=== PATIENT | female | born 1945 | race Caucasian/White ===

== ENCOUNTER 2022-06-07 12:13 | Emergency (ER) | payer MEDICARE, MEDICAID, SELFPAY ==
[2022-06-07 12:25] VITALS: BP 151/70; PULSE 51; RESP 18; TEMP 36.8; O2SAT 98
--- NOTE | 2022-06-07 12:58 | ED.GENADULT ---
HPI - General Adult General Chief complaint: Urogenital-Female Stated complaint: Poss uti / kidney pain Source: patient and RN notes reviewed History of Present Illness HPI narrative: 76-year-old female presents to urgent care with complaints left lower back pain that radiates up and down her back. Patient states the symptoms are intermittent but has been going on for the last 9 days. Patient states she has always had back pain in this area for the last 40 years. Patient denies any new abdominal pain, flank pain, fevers, chills, chest pain, or new shortness of breath. Patient is also reporting some burning with urination intermittently the last few days as well. Some parts of this dictation were generated by voice recognition software and may contain typographical and/or grammatical inaccuracies. Related Data Home Medications Medication Instructions Recorded Confirmed alendronate 70 mg tablet 70 mg PO WEEKLY 06/07/22 06/07/22 apixaban 5 mg tablet (Eliquis) 5 mg PO BID 06/07/22 06/07/22 brimonidine 0.2 % eye drops 1 drp EACH EYE BID 06/07/22 06/07/22 dorzolamide 2 % eye drops 2 drp EACH EYE BID 06/07/22 06/07/22 escitalopram oxalate 5 mg tablet 5 mg PO DAILY 06/07/22 06/07/22 famotidine 20 mg tablet 20 mg PO BID 06/07/22 06/07/22 latanoprost 0.005 % eye drops 1 drp EACH EYE HS 06/07/22 06/07/22 metoprolol tartrate 50 mg tablet 25 mg PO BID 06/07/22 06/07/22 omeprazole 40 mg capsule,delayed 40 mg PO DAILY 06/07/22 06/07/22 release prednisone 20 mg tablet mg 06/07/22 pyridostigmine bromide 180 mg 180 mg PO HS 06/07/22 06/07/22 tablet,extended release pyridostigmine bromide 60 mg tablet 90 mg PO TID 06/07/22 06/07/22 Allergies Allergy/AdvReac Type Severity Reaction Status Date / Time Penicillins Allergy Mild THROAT Verified 07/06/18 10:30 FEELS ODD AND HAS INCREASE IN [place]A codeine Allergy Unknown Unknown Unverified 06/07/22 12:28 heparin Allergy Unknown Unknown Unverified 06/07/22 12:28 Review of Systems Review of Systems: Pertinent positives and pertinent negatives per HPI. PMFSH Comments At the time of my signature, I reviewed and agree with the nursing past medical, surgical, social, and family history. There is no relevant family history pertinent to the patient complaint. Exam Narrative: GENERAL: This is a well-nourished, well-developed patient, in no apparent distress. HEAD: normocephalic, atraumatic. EYES: Sclera clear/white. Vision is grossly intact. EARS: External ears normal, auditory canals clear and without drainage. Hearing grossly intact. NOSE: External nose normal with no obvious nasal discharge, nares without redness, no rhinorrhea. THROAT: Mucous membranes moist, posterior pharynx clear. NECK: Neck supple, non-tender without lymphadenopathy, masses or thyromegaly. CARDIOVASCULAR: Bradycardic RESPIRATORY: Clear to auscultation. Breath sounds equal bilaterally. No wheezes, rales, or rhonchi. GASTROINTESTINAL: Abdomen soft, non-tender, nondistended. Bowel sounds are active. No hepato-splenomegaly, or palpable masses. No guarding. SKIN: warm, intact with no suspicious lesions or rash, good texture and turgor. NEURO: awake, alert, and oriented to person, place and time. There were no obvious focal neurologic abnormalities. BACK: Nontender without deformity or crepitance. No flank tenderness. Course Course Level of Care: Express Care Visit Vital Signs Vital signs: Vital Signs Temperature 98.2 F 06/07/22 12:25 Pulse Rate 51 L 06/07/22 12:25 Respiratory Rate 18 06/07/22 12:25 Blood Pressure 151/70 H 06/07/22 12:25 Pulse Oximetry 98 06/07/22 12:25 Oxygen Delivery Room Air 06/07/22 12:25 Temperature 98.2 F 06/07/22 12:25 Pulse Rate 51 L 06/07/22 12:25 Respiratory Rate 18 06/07/22 12:25 Blood Pressure 151/70 H 06/07/22 12:25 Pulse Oximetry 98 06/07/22 12:25 Oxygen Delivery Room Air 06/07/22 12:25 Reviewed Medical Decision Making [facility] Sridhar
== END 2022-06-07 13:07 | disposition home or self-care (01) ==
PROVIDERS: Emergency Provider Nurse Practitioner Family; PCP Internal Medicine
DX: S39.012A Strain of muscle, fascia and tendon of lower back, initial encounter (principal); X58.XXXA Exposure to other specified factors, initial encounter; R30.0 Dysuria
CPT/HCPCS: 81003; 87086; 87088; 99213; G0463

== ENCOUNTER → 2024-02-08 12:44 | Outpatient (CLI) | payer MEDICARE, MEDICAID, SELFPAY ==
--- NOTE | ~2024-02-08 | XR_ITS ---
3 VIEWS LUMBAR SPINE Ordering provider: Albert Beauchamp, History: . DORSALGIA, PAIN BY KIDNEYS . Comparison: None. FINDINGS: VERTEBRAL BODIES: No visible fracture or subluxation. Degenerative changes of the spine. Attempt of l umbarization of S1. DISK SPACES: Severe Narrowing of the disc L2-L3, L4-L5 and L5-S1. Multilevel facet joint disease. SOFT TISSUES: Cholelithiasis. Right sacroiliitis. IMPRESSION: No acute osseous abnormality lumbar spine. Multilevel degenerative disc disease. Cholelithiasis. Right sacral ileitis. Reviewed, dictated and finalized at location [employer]
== END ==
LOC: EXPBRAD 12:47
PROVIDERS: PCP Internal Medicine; Visit Provider Internal Medicine
DX: M54.9 Dorsalgia, unspecified (principal); M51.369 Other intervertebral disc degeneration, lumbar region without mention of lumbar back pain or lower extremity pain; K80.20 Calculus of gallbladder without cholecystitis without obstruction
CPT/HCPCS: 72100

== ENCOUNTER 2024-04-18 18:25 | Emergency (ER) | payer MEDICARE, MEDICAID, SELFPAY ==
--- NOTE | ~2024-04-18 | XR_ITS ---
CHEST RADIOGRAPH, PA AND LATERAL CLINICAL HISTORY: cough,COVID POSITIVE, RT LOWER CRACKLES . COMPARISON: None TECHNIQUE: PA and lateral views of the chest. FINDINGS The cardiomediastinal silhouette is unremarkable. The lungs are clear. Visualized osseous structures and soft tissues are unremarkable. IMPRESSION: No focal infiltrate or effusion. Reviewed, dictated and finalized at location [facility] [employer]
--- OUTSIDE RECORDS SUMMARY | 2024-04-18 18:28 | XMS_ITS | Encounter Summary ---
Author Organization [facility] Address [address] [place] [address] Phone Care Team Providers Care Radiochemical Technician Name Role Phone Albert Beauchamp MD Primary Care Provider Jamie Ochoa DO Unavailable [phone] Rosa Arreguin PAC Unavailable Sandhya Gonzalez APRN, QA SOFTWARE TEST ENGINEER Unavailable Justyn Barrera MD Unavailable [phone] Clari Rubio MD Unavailable Reason for Visit * Reason Comments Medication Refill Encounter Details Date Type Department Care Team (Late st Contact Info) Description 06/13/2021 Refill [facility] - Gastroenterology - [place] [address] [place] [id number] Rosa Arreguin, PAC [address] [place] [address] Medication Refill Social History Tobacco Use Types Packs/Day Years Used Date Smoking Tobacco: Never Smokeless Tobacco: Never Alcohol Use Standard Drinks/Week Comments Yes 0 (1 standard drink = 0.6 oz pur e alcohol) occassioal Comments No Sex and Gender Information Value Date Recorded Sex Assigned at Not on file Legal Sex Female 11:28 PM CDT Gender Identity Not on file Sexual Orientation Not on file Occupation Industry Job Start Date Job End Date retired Not on file Not on file Not on file documented as of this encounter Miscellaneous Notes * Telephone Encounter - Kendy Servin RN - 06/13/2021 10:03 AM CDT Medication refilled and signed per [facility] chronic medication standing order for pediatric and adult patients. documented in this encounter Plan of Treatment Upcoming Encounters Date Type Department Care Team (Late st Contact Info) Description 06/30/2024 10:00 AM CDT Office Visit [facility] - Endocrinology - [place] [address] [place] [address] Clari Rubio MD [address] [phone] 07/25/2024 10:00 AM CDT Office Visit [facility] Medical [facility] - Gastroenterology - [place] [address] [place] [address] Sandhya Gonzalez APRN, QA SOFTWARE TEST ENGINEER [address] [place] [address] documented as of this encounter Visit Diagnoses Not on filedocumented in this encounter Additional Health Concerns Infection Onset Date Last Indicated Resolved Time COVID - 19 Confirmed 01/16/2022 01/16/2022 022 12:16 AM [employer] SUPER[employer] documented as of this encounter Care Teams Radiochemical Technician Relationship Specialty Start Date End Date Albert Beauchamp MD [address] [place], [place] [phone] PCP - General Internal Medicine 06/07/15 Jamie Ochoa DO [address] [place] [address] Gastroenterology 07/20/15 Rosa Arreguin PAC [address] [place] [address] Physician Director Of Integrated Marketing Physician Director Of Integrated Marketing 07/11/21 Sandhya Gonzalez APRN, QA SOFTWARE TEST ENGINEER [address] [place] [address] Nurse Practitioner Advanced Practice Nurse 01/30/23 Justyn Barrera MD [address] [place] [address] Consulting Physician Gastroenterology 05/25/22 Clari Rubio MD [address] [phone] Consulting Physician Endocrinology 05/21/23 documented as of this encounter
--- OUTSIDE RECORDS SUMMARY | 2024-04-18 18:28 | XMS_ITS | Data Portability ---
Author Organization [facility] NANCY Yana [facility] Address [address] [place] [address] Care Team Providers Care Community Service Organization Director Name Role Phone ALBERT BANEGAS Primary Care Provider [phone] Assessment No assessment recorded. Plan of Treatment Reminders Order Date Submit Date Provider Last Modified By Organization Details Last Modified Time Details Appointments ANY 15 2024 10:30A M RICHAR ALEXANDER- Not available Not available Not available Lab urinalysi s, dipstick 2023 024 nsuthan In-Office Order, Internal Use Only DO Not Attach Compendium DO Not Attach Compendium, Do Not Delete/merge, [id number] 02/08/2024 11:12:43 HbA1c (hemoglob in A1c), blood 2023 024 [facility], [address] [facility], [facility] [address], [place], [address], 02/21/2024 10:36:55 lipid panel, serum 2023 024 [facility], [address] [facility], [facility], [place], [address], 02/21/2024 10:36:52 CBC w/ auto diff 2023 024 [facility], [address] [facility], [facility], [place], [address], 02/21/2024 10:36:56 CMP, serum or plasma 2023 024 [facility], [address] [facility], [address], [place], [address], 02/21/2024 10:36:53 vitamin D, 25-hydrox y, total, serum 2023 024 [facility], [address], [address], [place], [address], 09/25/2023 08:22:27 HbA1c (hemoglob in A1c), blood 2023 024 [facility], [address] [facility], [address], [place], [address], 09/25/2023 08:22:26 CBC w/ auto diff 2023 024 [facility], [address] [facility], [address], [place], [address], 09/25/2023 08:22:27 CMP, serum or plasma 2023 024 [facility], [address] [facility], [address], [place], [address], 09/25/2023 08:22:25 lipid panel, serum 2023 024 [facility], [address] [facility], [address], [place], [address], 09/25/2023 08:22:24 Referral None recorded. Procedures None recorded. Surgeries None recorded. Imaging XR, lumbar spine 2023 024 [facility], [address] [place], [address], 02/08/2024 18:33:59 Medication Orders tramadol 50 mg tablet 2023 024 [facility], [address], [place], [address], 01/01/2024 11:35:21 Patient TargetsNo targets recorded. Patient Instructions Encounter Date Encounter Id Patient Instructions Last Modified By Organization Details Last Modified Time 07/03/2023 [id number] pt in 3 month with labs nsuthan Not available 07/03/2023 11:14:37 10/02/2023 [id number] f/u in 3 month nsuthan Not available 10/02/2023 11:48:02 01/01/2024 [id number] bursitis: care instructions nsuthan Not available 01/01/2024 11:35:18 f/u in 4 month nsuthan Not available 1 11:28:02 02/08/2024 [id number] keep f/u nsuthan Not available 02/07 14:13:50 Reason for Referral None Reported. Results Created Date Observation Date Name Description Value Unit Range Abnormal Flag Note LastModifiedBy Organization Detail LastModifiedTime 09/24/19 24 09/25/2023 LIPID PANEL cholesterol, total 171 mg/dL 100-19 9 Not Available [facility] ([facility]) [address] [place], [address], 09/25/2023 08:22:24 09/24/19 24 09/25/2023 LIPID PANEL triglyceride s 156 mg/dL 0-149 above high normal Not Available [facility] ([facility]) [address] [place], [address], 09/25/2023 08:22:24 09/24/19 24 09/25/2023 LIPID PANEL HDL cholesterol 69 mg/dL >39 Not Available [facility] ([facility]) [address] [place], [address], 09/25/2023 08:22:24 09/24/19 24 09/25/2023 LIPID PANEL VLDL cholesterol yarely 26 mg/dL 5-40 Not Available [facility] ([facility]) [address] [place], [address], 09/25/2023 08:22:24 09/24/19 24 09/25/2023 LIPID PANEL LDL chol calc ([facility]) 76 mg/dL 0-99 Not Available [facility] ([facility]) [address] [facility] [place], [address], 09/25/2023 08:22:24 09/24/19 24 09/25/2023 COMP. METAB OLIC PANEL (14) glucose 114 mg/dL 70-99 above high normal Not Available [facility] ([facility]) [address] [facility] [place], [address], 09/25/2023 08:22:25 09/24/19 24 09/25/2023 COMP. METAB OLIC PANEL (14) BUN 15 mg/dL 8-27 Not Available [facility] ([facility]) [address] [facility] [place], [address], 09/25/2023 08:22:25 09/24/19 24 09/25/2023 COMP. METAB OLIC PANEL (14) creatinine 0.89 mg/dL 0.57-1 .00 Not Available [facility] ([facility]) [address] [facility] [place], [address], 09/25/2023 08:22:25 09/24/19 24 09/25/2023 COMP. METAB OLIC PANEL (14) eGFR 67 mL/mi n/1.7 3 >59 Not Available [facility] ([facility]) [address] [facility] [place], [address], 09/25/2023 08:22:25 09/24/19 24 09/25/2023 COMP. METAB OLIC PANEL (14) BUN/creatini ne ratio 17 12-28 Not Available [facility] ([facility]) [address] [facility] [place], [address], 09/25/2023 08:22:25 09/24/19 24 09/25/2023 COMP. METAB OLIC PANEL (14) sodium 138 mmol/ L 134-14 4 Not Available [facility] ([facility]) [address] [facility] [place], [address], 09/25/2023 08:22:25 09/24/19 24 09/25/2023 COMP. METAB OLIC PANEL (14) potassium 4.7 mmol/ L 3.5-5. 2 Not Available [facility] ([facility]) [address] [facility] [place], [address], 09/25/2023 08:22:25 09/24/19 24 09/25/2023 COMP. METAB OLIC PANEL (14) chloride 103 mmol/ L 96-106 Not Available [facility] ([facility]) [address] [facility] [place], [address], 09/25/2023 08:22:25 09/24/19 24 09/25/2023 COMP. METAB OLIC PANEL (14) carbon dioxide, total 20 mmol/ L 20-29 Not Available [facility] ([facility]) [address] [facility] [place], [address], 09/25/2023 08:22:25 09/24/19 24 09/25/2023 COMP. METAB OLIC PANEL (14) calcium 9.1 mg/dL 8.7-10 .3 Not Available [facility] ([facility]) [address] [facility] [place], [address], 09/25/2023 08:22:25 09/24/19 24 09/25/2023 COMP. METAB OLIC PANEL (14) protein, total 6.4 g/dL 6.0-8. 5 Not Available [facility] ([facility]) [address] [facility] [place], [address], 09/25/2023 08:22:25 09/24/19 24 09/25/2023 COMP. METAB OLIC PANEL (14) albumin 4.3 g/dL 3.8-4. 8 Not Available [facility] ([facility]) [address] [facility] [place], [address], 09/25/2023 08:22:25 09/24/19 24 09/25/2023 COMP. METAB OLIC PANEL (14) globulin, total 2.1 g/dL 1.5-4. 5 Not Available [facility] ([facility]) [address] [place], [address], 09/25/2023 08:22:25 09/24/19 24 09/25/2023 COMP. METAB OLIC PANEL (14) bilirubin, total 0.2 mg/dL 0.0-1. 2 Not Available [facility] ([facility]) [address] [place], [address], 09/25/2023 08:22:25 09/24/19 24 09/25/2023 COMP. METAB OLIC PANEL (14) alkaline phosphatase 57 IU/L 44-121 Not Available [facility] ([facility]) [address] [place], [address], 09/25/2023 08:22:25 09/24/19 24 09/25/2023 COMP. METAB OLIC PANEL (14) AST (SGOT) 19 IU/L 0-40 Not Available [facility] ([facility]) [address] [place], [address], 09/25/2023 08:22:25 09/24/19 24 09/25/2023 COMP. METAB OLIC PANEL (14) ALT (SGPT) 14 IU/L 0-32 Not Available [facility] ([facility]) [address] [place], [address], 09/25/2023 08:22:25 09/24/19 24 09/25/2023 HEMOG LOBIN A1C hemoglobin A1C 6.2 % 4.8-5. 6 above high normal Predi abete s: 5.7 - 6.4 Diabe johny: >6.4 Glyce jaylen contr ol for adult s with diabe johny: <7.0 Not Available [facility] ([facility]) [address] [place], [address], 09/25/2023 08:22:26 09/24/19 24 09/25/2023 CBC WITH DIFFE RENTI AL/PL ATELE T WBC 5.5 x10e3 /uL 3.4-10 .8 Not Available [facility] ([facility]) [address] [facility], [place], [address], 09/25/2023 08:22:26 09/24/19 24 09/25/2023 CBC WITH DIFFE RENTI AL/PL ATELE T RBC 4.90 x10e6 /uL 3.77-5 .28 Not Available [facility] ([facility]) [address] [place], [address], 09/25/2023 08:22:26 09/24/19 24 09/25/2023 CBC WITH DIFFE RENTI AL/PL ATELE T hemoglobin 11.9 g/dL 11.1-1 5.9 Not Available [facility] ([facility]) [address] [place], [address], 09/25/2023 08:22:26 09/24/19 24 09/25/2023 CBC WITH DIFFE RENTI AL/PL ATELE T hematocrit 38.4 % 34.0-4 6.6 Not Available [facility] ([facility]) [address] [place], [address], 09/25/2023 08:22:26 09/24/19 24 09/25/2023 CBC WITH DIFFE RENTI AL/PL ATELE T MCV 78 fL 79-97 below low normal Not Available [facility] ([facility]) [address] [place], [address], 09/25/2023 08:22:26 09/24/19 24 09/25/2023 CBC WITH DIFFE RENTI AL/PL ATELE T MCH 24.3 pg 26.6-3 3.0 below low normal Not Available [facility] ([facility]) [address] [place], [address], 09/25/2023 08:22:26 09/24/19 24 09/25/2023 CBC WITH DIFFE RENTI AL/PL ATELE T MCHC 31.0 g/dL 31.5-3 5.7 below low normal Not Available [facility] ([facility]) [address] [facility], [place], [address], 09/25/2023 08:22:26 09/24/19 24 09/25/2023 CBC WITH DIFFE RENTI AL/PL ATELE T RDW 17.3 % 11.7-1 5.4 above high normal Not Available [facility] ([facility]) [address] [facility], [place], [address], 09/25/2023 08:22:26 09/24/19 24 09/25/2023 CBC WITH DIFFE RENTI AL/PL ATELE T platelets 302 x10e3 /uL 150-45 0 Not Available [facility] ([facility]) [address] [facility], [place], [address], 09/25/2023 08:22:26 09/24/19 24 09/25/2023 CBC WITH DIFFE RENTI AL/PL ATELE T neutrophils 71 % notest ab. Not Available [facility] ([facility]) [address] [facility], [place], [address], 09/25/2023 08:22:26 09/24/19 24 09/25/2023 CBC WITH DIFFE RENTI AL/PL ATELE T lymphs 14 % notest ab. Not Available [facility] ([facility]) [address] [place], [address], 09/25/2023 08:22:26 09/24/19 24 09/25/2023 CBC WITH DIFFE RENTI AL/PL ATELE T monocytes 12 % notest ab. Not Available [facility] ([facility]) [address] [place], [address], 09/25/2023 08:22:26 09/24/19 24 09/25/2023 CBC WITH DIFFE RENTI AL/PL ATELE T eos 2 % notest ab. Not Available [facility] ([facility]) [address] [place], [address], 09/25/2023 08:22:26 09/24/19 24 09/25/2023 CBC WITH DIFFE RENTI AL/PL ATELE T basos 1 % notest ab. Not Available [facility] ([facility]) [address] [place], [address], 09/25/2023 08:22:26 09/24/19 24 09/25/2023 CBC WITH DIFFE RENTI AL/PL ATELE T neutrophils (absolute) 3.9 x10e3 /uL 1.4-7. 0 Not Available [facility] ([facility]) [address] [place], [address], 09/25/2023 08:22:26 09/24/19 24 09/25/2023 CBC WITH DIFFE RENTI AL/PL ATELE T lymphs (absolute) 0.7 x10e3 /uL 0.7-3. 1 Not Available [facility] ([facility]) [address] [place], [address], 09/25/2023 08:22:26 09/24/19 24 09/25/2023 CBC WITH DIFFE RENTI AL/PL ATELE T monocytes(ab solute) 0.7 x10e3 /uL 0.1-0. 9 Not Available [facility] ([facility]) [address] [place], [address], 09/25/2023 08:22:26 09/24/19 24 09/25/2023 CBC WITH DIFFE RENTI AL/PL ATELE T eos (absolute) 0.1 x10e3 /uL 0.0-0. 4 Not Available [facility] ([facility]) [address] [place], [address], 09/25/2023 08:22:26 09/24/19 24 09/25/2023 CBC WITH DIFFE RENTI AL/PL ATELE T baso (absolute) 0.0 x10e3 /uL 0.0-0. 2 Not Available [facility] ([facility]) [address] [facility], [place], [address], 09/25/2023 08:22:26 09/24/19 24 09/25/2023 CBC WITH DIFFE RENTI AL/PL ATELE T immature granulocytes 0 % notest ab. Not Available [facility] ([facility]) [address] [facility], [place], [address], 09/25/2023 08:22:26 09/24/19 24 09/25/2023 CBC WITH DIFFE RENTI AL/PL ATELE T immature grans (abs) 0.0 x10e3 /uL 0.0-0. 1 Not Available [facility] ([facility]) [address] [facility], [place], [address], 09/25/2023 08:22:26 09/24/19 24 09/25/2023 VITAM IN D, 25-HY DROXY vitamin D, 25-hydroxy 45.3 NG/mL 30.0-1 00.0 Vitam in D defic iency has been defin ed by the Insti tute of Medic ine and an Endoc rine Socie ty pract ice guide line as a level of serum 25-OH vitam in D less than 20 ng/mL (1,2) . The Endoc rine Socie ty went on to furth er defin e vitam in D insuf ficie ncy as a level betwe en 21 and 29 ng/mL (2). 1. IOM (Inst itute of Medic ine). 2009. Dieta ry refer ence intak es for calci um and D. Cain wood [place]: The Natio [facility] Press . 2. Supriya paiz MF, Binkl ey [place], Ham off-F errar i CLEARY, et al. Evalu ation , treat ment, and preve ntion of vitam in D defic iency : an Endoc rine Socie ty clini yarely pract ice guide line. JCEM. 2010; 96(7) :1911 -30. Not Available [facility] ([facility]) [address] [facility], [place], [address], 09/25/2023 08:22:27 02/08/20 24 02/08/2024 urina lysis , dipst ick Leukocytes Negati ve Not Available In-Office Order Internal Use Only DO Not Attach Compendium DO Not Attach Compendium, Do Not Delete/merge, [id number] 02/08/2024 10:49:31 02/08/20 24 02/08/2024 urina lysis , dipst ick Nitrite negati ve Not Available In-Office Order Internal Use Only DO Not Attach Compendium DO Not Attach Compendium, Do Not Delete/merge, [id number] 02/08/2024 10:49:31 02/08/20 24 02/08/2024 urina lysis , dipst ick Urobilinogen .2 Not Available In-Of fice Order Internal Use Only DO Not Attach Compendium DO Not Attach Compendium, Do Not Delete/merge, [id number] 02/08/2024 10:49:31 02/08/20 24 02/08/2024 urina lysis , dipst ick Protein Negati ve Not Available In-Office Order Internal Use Only DO Not Attach Compendium DO Not Attach Compendium, Do Not Delete/merge, [id number] 02/08/2024 10:49:31 02/08/20 24 02/08/2024 urina lysis , dipst ick pH 5.5 Not Available In-Office Order Internal Use Only DO Not Attach Compendium DO Not Attach Compendium, Do Not Delete/merge, [id number] 02/08/2024 10:49:31 02/08/20 24 02/08/2024 urina lysis , dipst ick Blood Negati ve Not Available In-Office Order Internal Use Only DO Not Attach Compendium DO Not Attach Compendium, Do Not Delete/merge, [id number] 02/08/2024 10:49:31 02/08/20 24 02/08/2024 urina lysis , dipst ick Specific [place] 1.015 Not Available In-Off ice Order Internal Use Only DO Not Attach Compendium DO Not Attach Compendium, Do Not Delete/merge, [id number] 02/08/2024 10:49:31 02/08/20 24 02/08/2024 urina lysis , dipst ick Ketone Negati ve Not Available In-Office Order Internal Use Only DO Not Attach Compendium DO Not Attach Compendium, Do Not Delete/merge, [id number] 02/08/2024 10:49:31 02/08/20 24 02/08/2024 urina lysis , dipst ick Bilirubin Negati ve Not Available In-Office Order Internal Use Only DO Not Attach Compendium DO Not Attach Compendium, Do Not Delete/merge, [id number] 02/08/2024 10:49:31 02/08/20 24 02/08/2024 urina lysis , dipst ick Glucose Negati ve Not Available In-Office Order Internal Use Only DO Not Attach Compendium DO Not Attach Compendium, Do Not Delete/merge, [id number] 02/08/2024 10:49:31 02/08/20 24 02/08/2024 urina lysis , dipst ick Appearance Clear Not Available In-Offi ce Order Internal Use Only DO Not Attach Compendium DO Not Attach Compendium, Do Not Delete/merge, [id number] 02/08/2024 10:49:31 02/08/20 24 02/08/2024 urina lysis , dipst ick Color Pale Yellow Not Available In-Office Order Internal Use Only DO Not Attach Compendium DO Not Attach Compendium, Do Not Delete/merge, [id number] 02/08/2024 10:49:31 02/20/20 24 02/21/2024 LIPID PANEL cholesterol, total 180 mg/dL 100-19 9 Not Available [facility] ([facility]) [address] [place], [address], 02/21/2024 10:36:52 02/20/20 24 02/21/2024 LIPID PANEL triglyceride s 247 mg/dL 0-149 above high normal Not Available [facility] ([facility]) [address] [place], [address], 02/21/2024 10:36:52 02/20/20 24 02/21/2024 LIPID PANEL HDL cholesterol 71 mg/dL >39 Not Available [facility] ([facility]) [address] [facility], [place], [address], 02/21/2024 10:36:52 02/20/20 24 02/21/2024 LIPID PANEL VLDL cholesterol yarely 39 mg/dL 5-40 Not Available [facility] ([facility]) [address] [facility], [place], [address], 02/21/2024 10:36:52 02/20/20 24 02/21/2024 LIPID PANEL LDL chol calc ([facility]) 70 mg/dL 0-99 Not Available [facility] ([facility]) [address] [place], [address], 02/21/2024 10:36:52 02/20/20 24 02/21/2024 COMP. METAB OLIC PANEL (14) glucose 107 mg/dL 70-99 above high normal Not Available [facility] ([facility]) [address] [place], [address], 02/21/2024 10:36:53 02/20/20 24 02/21/2024 COMP. METAB OLIC PANEL (14) BUN 17 mg/dL 8-27 Not Available [facility] ([facility]) [address] [place], [address], 02/21/2024 10:36:53 02/20/20 24 02/21/2024 COMP. METAB OLIC PANEL (14) creatinine 0.89 mg/dL 0.57-1 .00 Not Available [facility] ([facility]) [address] [place], [address], 02/21/2024 10:36:53 02/20/20 24 02/21/2024 COMP. METAB OLIC PANEL (14) eGFR 67 mL/mi n/1.7 3 >59 Not Available [facility] ([facility]) [address] [facility] [place], [address], 02/21/2024 10:36:53 02/20/20 24 02/21/2024 COMP. METAB OLIC PANEL (14) BUN/creatini ne ratio 20 02- Not Available [facility] ([facility]) [address] [facility] [place], [address], 02/21/2024 10:36:53 02/20/20 24 02/21/2024 COMP. METAB OLIC PANEL (14) sodium 140 mmol/ L 134-14 4 Not Available [facility] ([facility]) [address] [facility] [place], [address], 02/21/2024 10:36:53 02/20/20 24 02/21/2024 COMP. METAB OLIC PANEL (14) potassium 4.0 mmol/ L 3.5-5. 2 Not Available [facility] ([facility]) [address] [facility] [place], [address], 02/21/2024 10:36:53 02/20/20 24 02/21/2024 COMP. METAB OLIC PANEL (14) chloride 103 mmol/ L 96-106 Not Available [facility] ([facility]) [address] [facility] [place], [address], 02/21/2024 10:36:53 02/20/20 24 02/21/2024 COMP. METAB OLIC PANEL (14) carbon dioxide, total 24 mmol/ L 20-29 Not Available [facility] ([facility]) [address] [facility] [place], [address], 02/21/2024 10:36:53 02/20/20 24 02/21/2024 COMP. METAB OLIC PANEL (14) calcium 8.9 mg/dL 8.7-10 .3 Not Available [facility] ([facility]) [address] [place], [address], 02/21/2024 10:36:53 02/20/20 24 02/21/2024 COMP. METAB OLIC PANEL (14) protein, total 6.5 g/dL 6.0-8. 5 Not Available [facility] ([facility]) [address] [facility] [place], [address], 02/21/2024 10:36:53 02/20/20 24 02/21/2024 COMP. METAB OLIC PANEL (14) albumin 4.4 g/dL 3.8-4. 8 Not Available [facility] ([facility]) [address] [facility] [place], [address], 02/21/2024 10:36:53 02/20/20 24 02/21/2024 COMP. METAB OLIC PANEL (14) globulin, total 2.1 g/dL 1.5-4. 5 Not Available [facility] ([facility]) [address] [facility], [place], [address], 02/21/2024 10:36:53 02/20/20 24 02/21/2024 COMP. METAB OLIC PANEL (14) bilirubin, total 0.2 mg/dL 0.0-1. 2 Not Available [facility] ([facility]) [address] [facility] [place], [address], 02/21/2024 10:36:53 02/20/20 24 02/21/2024 COMP. METAB OLIC PANEL (14) alkaline phosphatase 63 IU/L 44-121 Not Available [facility] ([facility]) [address] [facility] [place], [address], 02/21/2024 10:36:53 02/20/20 24 02/21/2024 COMP. METAB OLIC PANEL (14) AST (SGOT) 17 IU/L 0-40 Not Available [facility] ([facility]) [address] [facility] [place], [address], 02/21/2024 10:36:53 02/20/20 24 02/21/2024 COMP. METAB OLIC PANEL (14) ALT (SGPT) 13 IU/L 0-32 Not Available [facility] ([facility]) [address] [facility], [place], [address], 02/21/2024 10:36:53 02/20/20 24 02/21/2024 HEMOG LOBIN A1C hemoglobin A1C 6.2 % 4.8-5. 6 above high normal Predi abete s: 5.7 - 6.4 Diabe johny: >6.4 Glyce jaylen contr ol for adult s with diabe johny: <7.0 Not Available [facility] ([facility]) [address] [facility], [place], [address], 02/21/2024 10:36:55 02/20/20 24 02/21/2024 CBC WITH DIFFE RENTI AL/PL ATELE T WBC 6.2 x10e3 /uL 3.4-10 .8 Not Available [facility] ([facility]) [address] [facility], [place], [address], 02/21/2024 10:36:56 02/20/20 24 02/21/2024 CBC WITH DIFFE RENTI AL/PL ATELE T RBC 4.51 x10e6 /uL 3.77-5 .28 Not Available [facility] ([facility]) [address] [facility], [place], [address], 02/21/2024 10:36:56 02/20/20 24 02/21/2024 CBC WITH DIFFE RENTI AL/PL ATELE T hemoglobin 11.4 g/dL 11.1-1 5.9 Not Available [facility] ([facility]) [address] [place], [address], 02/21/2024 10:36:56 02/20/20 24 02/21/2024 CBC WITH DIFFE RENTI AL/PL ATELE T hematocrit 36.3 % 34.0-4 6.6 Not Available [facility] ([facility]) [address] [facility], [place], [address], 02/21/2024 10:36:56 02/20/20 24 02/21/2024 CBC WITH DIFFE RENTI AL/PL ATELE T MCV 81 fL 79-97 Not Available [facility] ([facility]) [address] [facility], [place], [address], 02/21/2024 10:36:56 02/20/20 24 02/21/2024 CBC WITH DIFFE RENTI AL/PL ATELE T MCH 25.3 pg 26.6-3 3.0 below low normal Not Available [facility] ([facility]) [address] [facility], [place], [address], 02/21/2024 10:36:56 02/20/20 24 02/21/2024 CBC WITH DIFFE RENTI AL/PL ATELE T MCHC 31.4 g/dL 31.5-3 5.7 below low normal Not Available [facility] ([facility]) [address] [facility], [place], [address], 02/21/2024 10:36:56 02/20/20 24 02/21/2024 CBC WITH DIFFE RENTI AL/PL ATELE T RDW 14.8 % 11.7-1 5.4 Not Available [facility] ([facility]) [address] [facility], [place], [address], 02/21/2024 10:36:56 02/20/20 24 02/21/2024 CBC WITH DIFFE RENTI AL/PL ATELE T platelets 307 x10e3 /uL 150-45 0 Not Available [facility] ([facility]) [address] [facility], [place], [address], 02/21/2024 10:36:56 02/20/20 24 02/21/2024 CBC WITH DIFFE RENTI AL/PL ATELE T neutrophils 71 % notest ab. Not Available [facility] ([facility]) [address] [facility], [place], [address], 02/21/2024 10:36:56 02/20/20 24 02/21/2024 CBC WITH DIFFE RENTI AL/PL ATELE T lymphs 16 % notest ab. Not Available [facility] ([facility]) [address] [facility], [place], [address], 02/21/2024 10:36:56 02/20/20 24 02/21/2024 CBC WITH DIFFE RENTI AL/PL ATELE T monocytes 11 % notest ab. Not Available [facility] ([facility]) [address] [facility] [facility], [place], [address], 02/21/2024 10:36:56 02/20/20 24 02/21/2024 CBC WITH DIFFE RENTI AL/PL ATELE T eos 1 % notest ab. Not Available [facility] ([facility]) [address] [facility], [place], [address], 02/21/2024 10:36:56 02/20/20 24 02/21/2024 CBC WITH DIFFE RENTI AL/PL ATELE T basos 1 % notest ab. Not Available [facility] ([facility]) [address] [place], [address], 02/21/2024 10:36:56 02/20/20 24 02/21/2024 CBC WITH DIFFE RENTI AL/PL ATELE T neutrophils (absolute) 4.4 x10e3 /uL 1.4-7. 0 Not Available [facility] ([facility]) [address] [place], [address], 02/21/2024 10:36:56 02/20/20 24 02/21/2024 CBC WITH DIFFE RENTI AL/PL ATELE T lymphs (absolute) 1.0 x10e3 /uL 0.7-3. 1 Not Available [facility] ([facility]) [address] [facility] [place], [address], 02/21/2024 10:36:56 02/20/20 24 02/21/2024 CBC WITH DIFFE RENTI AL/PL ATELE T monocytes(ab solute) 0.7 x10e3 /uL 0.1-0. 9 Not Available [facility] ([facility]) [address] [place], [address], 02/21/2024 10:36:56 02/20/20 24 02/21/2024 CBC WITH DIFFE RENTI AL/PL ATELE T eos (absolute) 0.1 x10e3 /uL 0.0-0. 4 Not Available [facility] ([facility]) [address] [facility], [place], [address], 02/21/2024 10:36:56 02/20/20 24 02/21/2024 CBC WITH DIFFE RENTI AL/PL ATELE T baso (absolute) 0.0 x10e3 /uL 0.0-0. 2 Not Available [facility] ([facility]) [address] [place], [address], 02/21/2024 10:36:56 02/20/20 24 02/21/2024 CBC WITH DIFFE RENTI AL/PL ATELE T immature granulocytes 0 % notest ab. Not Available [facility] ([facility]) [address] [place], [address], 02/21/2024 10:36:56 02/20/20 24 02/21/2024 CBC WITH DIFFE RENTI AL/PL ATELE T immature grans (abs) 0.0 x10e3 /uL 0.0-0. 1 Not Available [facility] ([facility]) [address] [place], [address], 02/21/2024 10:36:56 04/10/19 25 04/10/2024 drug scree n, urine Methadone (Mtd) Negati ve Not Available In-Office Order Internal Use Only DO Not Attach Compendium DO Not Attach Compendium, Do Not Delete/merge, 04/10/2024 11:19:13 04/10/19 25 04/10/2024 drug scree n, urine Buprenorphin e (Bup) Negati ve Not Available In-Office Order Internal Use Only DO Not Attach Compendium DO Not Attach Compendium, Do Not Delete/merge, 04/10/2024 11:19:13 04/10/19 25 04/10/2024 drug scree n, urine Oxycodone (Oxy) Negati ve Not Available In-Office Order Internal Use Only DO Not Attach Compendium DO Not Attach Compendium, Do Not Delete/merge, 04/10/2024 11:19:13 04/10/19 25 04/10/2024 drug scree n, urine Barbiturates (Bar) Negati ve Not Available In-Office Order Internal Use Only DO Not Attach Compendium DO Not Attach Compendium, Do Not Delete/merge, 04/10/2024 11:19:13 04/10/19 25 04/10/2024 drug scree n, urine MDMA (Ecstacy) Negati ve Not Available In-Office Order Internal Use Only DO Not Attach Compendium DO Not Attach Compendium, Do Not Delete/merge, 04/10/2024 11:19:13 04/10/19 25 04/10/2024 drug scree n, urine Amphetamines (Amp) Negati ve Not Available In-Office Order Internal Use Only DO Not Attach Compendium DO Not Attach Compendium, Do Not Delete/merge, 04/10/2024 11:19:13 04/10/19 25 04/10/2024 drug scree n, urine Opiates (opi) Negati ve Not Available In-Office Order Internal Use Only DO Not Attach Compendium DO Not Attach Compendium, Do Not Delete/merge, 04/10/2024 11:19:13 04/10/19 25 04/10/2024 drug scree n, urine Phencyclidin e (Pcp) Negati ve Not Available In-Office Order Internal Use Only DO Not Attach Compendium DO Not Attach Compendium, Do Not Delete/merge, [id number] 04/10/2024 11:19:13 04/10/19 25 04/10/2024 drug scree n, urine Tricyclic Antidepressa nts Negati ve Not Available In-Office Order Internal Use Only DO Not Attach Compendium DO Not Attach Compendium, Do Not Delete/merge, [id number] 04/10/2024 11:19:13 04/10/19 25 04/10/2024 drug scree n, urine Fentanyl Negati ve Not Available In-Office Order Internal Use Only DO Not Attach Compendium DO Not Attach Compendium, Do Not Delete/merge, [id number] 04/10/2024 11:19:13 08/27/19 24 08/23/2023 MAMMO , scree fabian, digit al, bilat eral No observ ation record ed. [facility] (Radiology) [address] [place] [address], [address], 09/04/2023 12:33:49 02/08/20 24 02/08/2024 XR, lumba r spine No observ ation record ed. SCOTT Galloway [facility] [address], [place], [address], 02/14/2024 17:45:38 Result Notes None recorded. 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 -sees cardio Albert Banegas MD Attn: Accountin g,[address] [facility], [place], [address], [place] - [facility] 2 12:53:49 Anti-nuc lear factor detected 903131024 Active 2020 possible Sjogrens/ RF- refered to rheumatol ogist- pt declined to see Albert Banegas MD Attn: Jeffersonayush henry,[address] [facility], [place], [address], [place] [facility] 4 11:24:05 Atrial fibrilla tion 29233568 Active 2021 on anticoagu lation Albert Banegas MD Attn: Elton henry,[address] [facility], [place], [address], [place] [facility] 2 09:51:09 Fracture of patella 77822631 Active 2022 s/p sx 08/25 Albert Banegas MD Attn: Elton carl,[address] [facility], [place], [address], [place] [facility] 3 10:40:50 Hyperlip idemia 02755437 Active 2022 Albert Banegas MD Attn: Jeffersonayush henry,[address] [facility], [place], [address], [place] [facility] 3 11:38:40 Osteopor osis 82328004 Active 2023 -sees endo for reclast infusion Albert Banegas MD Attn: Elton carl,[address] [facility], [place], [address], [place] [facility] 4 11:13:08 Hypergly cemia 40267100 Completed 03/24/2016 Albert Banegas MD Attn: Elton carl,[address] [place] [address], [place], [address], [place] [facility] 7 13:33:35 [facility] hyperten kaci 36699445 Active Albert Banegas MD Attn: Elton henry,[address] [facility], [place], [address], [place] [facility] 2 12:53:49 Gastroes ophageal reflux disease 513160232 Active Albert Banegas MD Attn: Elton henry,[address] [place], [address], [place] - [facility] 2 12:53:49 Viral hepatiti s C 88402676 Active Rxed with [facility]-r ecent lab 12/2019 showed some viral load Alla casanova, [place] - [facility] 1 10:54:58 Fecal occult blood: positive Completed 03/24/2016 Albert Banegas MD Attn: Elton henry,[address] [place], [address], [place] - [facility] 7 13:33:46 Mixed anxiety and depressi ve disorder 899186697 Active 2015 Albert Banegas MD Attn: Elton henry,[address] [place], [address], [place] - [facility] 2 12:53:49 Diabetes mellitus 79467121 Active 2016 pt is on prednison e Albert Banegas MD Attn: Elton henry,[address] [place], [address], [place] - [facility] 2 12:53:49 Cholelit hiasis without obstruct ion 93471569 Active [address] 08/04/16 for eval of elevated LFTs Alla casanova, [place] - [facility] 1 10:54:58 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 Please review this document and add these problems to the patient's chart manually as needed. Problem Notes None recorded. Procedures Surgical History Date Name Laterality Status Provider Name and Address Organization Details Recorded Time 08/25/19 23 Knee Surgery completed Deanna Patel MA CT - [facility] 10/16/2022 11:09:59 07/22/19 22 TYMPANOSTOMY, TUBE INSERTION (SURG) completed Alla Wynn CT - [facility] 08/30/2021 16:11:55 07/13/19 22 Cerumen removal without microscope completed Sunday Vanessa MA CT - [facility] 07/12/2021 11:22:44 01/14/20 20 colonoscopy completed Albert Banegas MD Attn: Accounting,[address] [place], [address], [facility] - [place] 01/14/2020 15:36:45 11/21/19 19 Cerumen Removal completed Albert Banegas MD Attn: Accounting,[address] [place], [address], [facility] - [facility] 11/21/2018 16:15:49 04/17/19 18 Most Recent Mammogram completed Albert Banegas MD Attn: Accounting,[address] [place], [address], [facility] - [facility] 04/19/2017 14:41:41 08/18/19 15 Colonoscopy with biopsy completed Albert Banegas MD Attn: Accounting,[address] [place], [address], [facility] - SI 12/25/2016 11:37:34 Eye Surgery completed Deanna Patel CT - [facility] 10:38:03 Eye Surgery completed Gudelia cMguire MA CT - [facility] 07/13/2014 11:17:30 Other completed Gudelia Mcguire MA CT - [facility] 07/13/2014 11:17:30 Other completed Gudelia Mcguire MA CT - [facility] 07/13/2014 11:17:30 Imaging Results Imaging Date Name Status LastModified by Organiz ation Details LastModified Time 08/23/2023 MAMMO, screening, digital, bilateral completed [facility] (Radiology) [address] [place] [address], [address], 09/04/2023 12:33:49 02/08/2024 XR, lumbar spine completed [facility] [address], [place], [address], 02/14/2024 17:45:38 Procedure Notes None recorded. Medical Equipment None Reported. Allergies Allergen ID Allergen Name Allergen Category Reaction Reaction Severity Criticality Documentation Date Start Date Code Code System Note Provider Name and Address Organization Details Recorded Time 41602 Product containin g penicilli n and antibioti c (product) medicatio n Not available Not available Not available 07/13/2014 79436 05 SNOMED Not Available Not Available Not Available 19597 heparin medicatio n Not available Not available Not available 07/13/2014 5224 RxNorm Not Available Not Available Not Available 71643 codeine medicatio n Not available Not available Not available 07/13/2014 2670 RxNorm Not Available Not Available Not Available Medications Name Sig Start Date Stop Date Status Note LastModified by Organization Details LastModified Time losartan 50 mg tablet Take 1 tablet every day by oral route. active Not Available Not Available No t Available cyclobenz aprine 10 mg tablet 04/03 completed Not Available Not Available Not Available latanopro st 0.005 % eye drops INSTILL 1 DROP IN BOTH EYES AT BEDTIME active Not Available Not Available No t Available doxycycli ne hyclate 100 mg capsule TAKE 1 CAPSULE BY MOUTH TWICE DAILY FOR 7 DAYS 08/31 completed Not Available Not Available Not Available atorvasta tin 10 mg tablet TAKE 1 TABLET BY MOUTH EVERY DAY 2024 active Not Available Not Available Not Avai lable azithromy milagros 250 mg tablet TAKE 2 TABLETS (500 MG) BY ORAL ROUTE ONCE DAILY FOR 1 DAY THEN 1 TABLET (250 MG) BY ORAL ROUTE ONCE DAILY FOR 4 DAYS 10/16 completed Not Available Not Available Not Available acetazola mide ER 500 mg capsule,e xtended release 07/23 completed Not Available Not Available Not Available ofloxacin 0.3 % eye drops 07/23 completed Not Available Not Available Not Available amiodaron e 200 mg tablet active Not Available Not Available Not Available hydrocodo ne 5 mg-acetam inophen 325 mg tablet ortho 12/25 completed Not Available Not Available Not Available Keflex 500 mg capsule Take 1 capsule 3 times a day by oral route for 7 days. 12/25 completed Not Available Not Available Not Available Medrol (Noel) 4 mg tablets in a dose pack Take as directed by oral route. 12/25 completed Not Available Not Available Not Available prednison e 20 mg tablet TAKE 1 TABLET BY MOUTH EVERY OTHER DAY active Not Available Not Available No t Available alendrona te 70 mg tablet TAKE 1 TABLET BY MOUTH 1 TIME a WEEK DIRECTED 07/02 completed Not Available Not Available Not Available prednison e 5 mg tablet neurolog ist 04/27 completed Not Available Not Available Not Available Debrox 6.5 % ear drops INSTILL 5 DROPS INTO AFFECTED EAR(S) BY OTIC ROUTE 2 TIMES PER DAY for 5 days 2024 active Not Available Not Available Not Avai lable amlodipin e 2.5 mg tablet 12/31 completed Not Available Not Available Not Available metronida zole 500 mg tablet TK 1 T PO TID 03/08 completed n Not Available Not Available Not Available azathiopr ine 50 mg tablet 11/02 completed not taking Not Available Not Available Not Available amlodipin e 5 mg tablet active Not Available Not Available Not Available sulfameth oxazole 800 mg-trimet hoprim 160 mg tablet 08/29 completed Not Available Not Available Not Available omeprazol e 40 mg capsule,d elayed release TAKE 1 CAPSULE BY MOUTH DAILY active Not Available Not Available No t Available tramadol 50 mg tablet TAKE 1 TABLET BY MOUTH THREE TIMES DAILY NEEDED active Not Available Not Available No t Available mycopheno late mofetil 500 mg tablet Take 2 tablets twice a day by oral route. active Not Available Not Available No t Available citalopra m 20 mg tablet TAKE 1 TABLET BY MOUTH EVERY DAY 03/23 completed Not Available Not Available Not Available famotidin e 20 mg tablet TAKE ONE (1) TABLET BY MOUTH TWICE DAILY 2023 active Not Available Not Available Not Avai lable prednisol one acetate 1 % eye drops,maren pension 11/20 completed Not Available Not Available Not Available benzonata te 100 mg capsule Take 1 capsule 3 times a day by oral route. 07/23 completed Not Available Not Available Not Available ranitidin e 150 mg tablet TAKE 1 TABLET BY MOUTH TWICE DAILY active Not Available Not Available No t Available pyridosti gmine bromide 60 mg tablet TAKE 1 AND 1/2 TABLETS BY MOUTH THREE TIMES DAILY active Not Available Not Available No t Available losartan 25 mg tablet TAKE 1 TABLET BY MOUTH EVERY DAY active Not Available Not Available No t Available brimonidi ne 0.2 % eye drops INSTILL 1 DROP IN BOTH EYES TWICE DAILY active Not Available Not Available No t Available metoprolo l tartrate 50 mg tablet cardio active Not Available Not Available Not Available pyridosti gmine bromide ER 180 mg tablet,ex tended release neurolog ist active Not Available Not Available No t Available ergocalci ferol (vitamin D2) 1,250 mcg (50,000 unit) capsule TAKE 1 CAPSULE BY MOUTH 1 TIME A WEEK 04/10 completed Not Available Not Available Not Available polyethyl andrew glycol 3350 17 gram/dose oral powder active Not Available Not Available Not Available albuterol sulfate HFA 90 mcg/actua tion aerosol inhaler INHALE 2 PUFFS BY MOUTH THREE TIMES DAILY 12/25 completed Not Available Not Available Not Available timolol maleate 0.5 % eye drops INSTILL 1 DROP INTO BOTH EYES TWICE A DAY active Not Available Not Available No t Available propranol ol 20 mg tablet TAKE ONE TABLET BY MOUTH TWICE DAILY 12/25 completed Not Available Not Available Not Available atropine 1 % eye drops 05/02 completed Not Available Not Available Not Available ondansetr on 4 mg disintegr ating tablet 03/23 completed Not Available Not Available Not Available losartan 100 mg tablet cardio active Not Available Not Available Not Available fluticaso ne propionat e 50 mcg/actua tion nasal spray,maren pension SHAKE LIQUID AND USE 2 SPRAYS IN EACH NOSTRIL EVERY DAY 08/31 completed not taking Not Available Not Available Not Available metformin ER 500 mg tablet,ex tended release 24 hr TAKE 1 TABLET BY MOUTH EVERY DAY 05/23 completed pt to hold for now Not Available Not Available Not Available dicyclomi ne 10 mg capsule TAKE 1 CAPSULE BY MOUTH THREE TIMES DAILY 04/03 completed Not Available Not Available Not Available dorzolami de 2 % eye drops INSTILL ONE DROP INTO BOTH EYES TWICE DAILY. NOTE THESE ARE NEW INSTRUCT IONS, SHE NOW USES IN BOTH EYES. active Not Available Not Available No t Available azithromy milagros 500 mg tablet 06/28 completed complete d Not Available Not Available Not Available cholestyr amine (with sugar) 4 gram powder for susp in a packet MIX AND DRINK 1 PACKET BY MOUTH TWICE DAILY WITH MEALS active Not Available Not Available No t Available escitalop joselyn 5 mg tablet TAKE 1 TABLET BY MOUTH EVERY DAY 2023 active Not Available Not Available Not Avai lable metoprolo l tartrate 25 mg tablet TAKE ONE (1) TABLET BY MOUTH TWICE DAILY active Not Available Not Available No t Available Wal-itin D 10 mg-240 mg tablet,ex tended release TAKE 1 TABLET BY MOUTH EVERY DAY 08/31 completed not taking Not Available Not Available Not Available Boniva 150 mg tablet Take 1 tablet every month by oral route. 2014 active Not Available Not Available Not Avai lable FreeStyle Lite Strips TEST EVERY DAY DIRECTED 2020 active Not Available Not Available Not Avai lable Twinrix (PF) 720 DELANEY unit-20 mcg/mL intramusc ular suspensio n 12/25 completed Not Available Not Available Not Available Durezol 0.05 % eye drops 03/18 completed not taking Not Available Not Available Not Available GaviLyte- G 236 gram-22.7 4 gram-6.74 gram-5.86 gram oral solution 04/03 completed Not Available Not Available Not Available Onglyza 5 mg tablet Take 1 tablet every day by oral route. 03/24 completed Not Available Not Available Not Available Eliquis 5 mg tablet TAKE ONE (1) TABLET BY MOUTH TWICE DAILY 2024 active Not Available Not Available Not Avai lable Harvoni 90 mg-400 mg tablet 06/22 completed Not Available Not Available Not Available naloxone 4 mg/actuat ion nasal spray 04/03 completed Not Available Not Available Not Available Vitals Date Recorded Body height Body mass index (BMI) Body weight Respiratory rate Heart rate Body temperature Oxygen saturation Oxygen saturation in Arterial blood by Pulse oximetry Systolic blood pressure Diastolic blood pressure Provider Name and Address Organization Details Last Updated DateTime 4 156.21 cm 23.6 kg/m2 79248.2 3 g 12 /min 48 /min 97.2 [degF] 97 % 97 % 127 mm[Hg] 74 mm[Hg] Deanna Patel DANIELLA CT - [facility] 4 10:48:45 Date Recorded Body height Body mass index (BMI) Body weight Heart rate Respiratory rate Body temperature Oxygen saturation Oxygen saturation in Arterial blood by Pulse oximetry Systolic blood pressure Diastolic blood pressure Provider Name and Address Organization Details Last Updated DateTime 4 156.21 cm 23.4 kg/m2 93869.9 2 g 54 /min 12 /min 97.7 [degF] 96 % 96 % 115 mm[Hg] 67 mm[Hg] Deanna DANIELLA Patel [facility] 4 11:33:02 Date Recorded Body height Body mass index (BMI) Body weight Heart rate Respiratory rate Body temperature Oxygen saturation Oxygen saturation in Arterial blood by Pulse oximetry Systolic blood pressure Diastolic blood pressure Provider Name and Address Organization Details Last Updated DateTime 4 156.21 cm 22.9 kg/m2 02879.2 2 g 51 /min 14 /min 97.3 [degF] 96 % 96 % 125 mm[Hg] 72 mm[Hg] Deanna Patel MA [facility] 4 10:58:11 Date Recorded Body height Body mass index (BMI) Body weight Oxygen saturation Oxygen saturation in Arterial blood by Pulse oximetry Body temperature Respiratory rate Heart rate Systolic blood pressure Diastolic blood pressure Provider Name and Address Organization Details Last Updated DateTime 4 156.21 cm 22.5 kg/m2 75891.6 8 g 99 % 99 % 98 [degF] 16 /min 50 /min 122 mm[Hg] 76 mm[Hg] GAIL Escobedo [facility] 4 10:32:58 Date Recorded Body height Body mass index (BMI) Body weight Oxygen saturation Oxygen saturation in Arterial blood by Pulse oximetry Heart rate Respiratory rate Body temperature Systolic blood pressure Diastolic blood pressure Provider Name and Address Organization Details Last Updated DateTime 5 156.21 cm 23 kg/m2 27177.0 9 g 97 % 97 % 65 /min 14 /min 97.3 [degF] 126 mm[Hg] 80 mm[Hg] Deanna Patel MA [facility] 5 10:34:31 Social History Question Answer Notes LastModified by Organizat ion Details LastModified Time Tobacco Smoking Status Never Smoker Gudelia Mcguire MA [facility], [place] - [facility] 07/13/2014 11:17:30 Do You Have An Advance Directive? No Information not available 08/10/2020 What Is Your Level Of Alcohol Consumption? Occasional A Few Times A Year Information not available 07/23/2018 Are You Blind Or Do You Have Difficulty Seeing? No Glasses -difficult y Seeing Information not available 04/03/2023 What Is Your Level Of Caffeine Consumption? Moderate Coffee, Soda [email or web address] Information not available 02/08/2024 How Much Tobacco Do You Chew? None Information not available 02/07/2016 In The 14 Days Before Symptom Onset, Have You Had Close Contact With A Laboratory-confir med COVID-19 While That Case Was Ill? No Information not available 02/14/2021 In The 14 Days Before Symptom Onset, Have You Had Close Contact With A Person Who Is Under Investigation For COVID-19 While That Person Was Ill? No Information not available 05/23/2021 Have You Been To An Area Known To Be High Risk For COVID-19? No Information not available 07/24/2019 Are You Currently Employed? No [email or web address] Information not available 07/12/2020 Are You Deaf Or Do You Have Serious Difficulty Hearing? No Information not available 12/01/2021 What Type Of Diet Are You Following? REGULAR Low Carbs- Trying. [email or web address] Information not available 04/13/2022 Which Illicit Or Recreational Drugs Have You Used? Denies Information not available 02/07/2016 Do You Or Have You Ever Used E-cigarettes Or Vape? Never Used Electronic Cigarettes Information not available 11/20/2018 Education 12 Information no t available 10/25/2016 What Is The Highest Grade Or Level Of School You Have Completed Or The Highest Degree You Have Received? [id number] [email or web address] Information not available 07/12/2020 What Is Your Occupation? Disability Information not available 08/10/2020 Are There Any Guns Present In Your Home? No Information not available 07/23/2018 Marital Status Single Informatio n not available 02/07/2016 What Was The Date Of Your Most Recent Tobacco Screening? 04/10/2024 Information not available 04/10/2024 Performs Monthly Self-breast Exam? Yes Information no t available 07/24/2019 Do You Have Any Pets? Yes 1 Dog Information not available 07/12/2021 What Is Your Relationship Status? Single Information not available 08/10/2020 Do You Use Your Seat Belt Or Car Seat Routinely? Yes [email or web address] Information not available 07/12/2020 Seat Belts Used Routinely Yes Information not available 07/23/2018 Smoke Alarm In Home Yes Information not available 07/24/2019 Do You Have Smoke And Carbon Monoxide Detectors In Your Home? Yes [email or web address] Information not available 07/12/2020 Do You Or Have You Ever Used Smokeless Tobacco? Never Used Smokeless Tobacco Information not available 11/20/2018 How Much Tobacco Do You Smoke? No Information not available 11/20/2018 General Stress Level Low Information not available 02/07/2016 Do You Feel Stressed (tense, Restless, Nervous, Or Anxious, Or Unable To Sleep At Night)? [id number] Information not available 01/01/2024 Do You Use Any Illicit Or Recreational Drugs? No [email or web address] Information not available 07/12/2020 Do You Use Sunscreen Routinely? No Information not available 07/23/2018 Has Tobacco Cessation Counseling Been Provided? No Information not available 12/25/2022 What Type Of Noise Exposure Are You Exposed To? Other Loud Tv Information not available 07/12/2021 Do You Or Have You Ever Used Any Other Forms Of Tobacco Or Nicotine? No Information not available 11/09/2020 Sex: Female Functional Status Question Answer Note LastModified by Organization D etails LastModified Time Are you able to care for yourself? Yes [email or web address] Information n ot available 07/12/2020 What is your exercise level? None some Information not available 07/03/2023 Mental Status None recorded. Family History Relationship Description Onset Age of this Age Resolved Age Notes LastModified by Organization Details LastModified Time Father Family history of malignant neoplasm Not available 2016 12:42:29 Maternal Uncle Family history of malignant neoplasm Not available 2016 12:42:29 Mother Heart disease conges tive heart failur e Not available 10/25/2016 12:44:16 Medical History Condition Response Coronary Artery Disease N Other Y High Blood Pressure Y Atrial Fibrillation N Kidney or Bladder Problems N Thyroid Problems N GI Problems N Depression N COPD N Blood Clots N Skin Problems Y Anemia N Heart Attack (SD) N Anxiety Disorder N Diabetes Y Muscle, Joint, or Bone Problems N Seizures/Epilepsy N Acid Reflux (GERD) Y Cancer N Stroke N Asthma N Allergies N High Cholesterol N Hepatitis Y Liver Disease Y Headaches N Osteoporosis Y Heart Failure N Gynecological History Statement/Question Response Most Recent Mammogram 04/17/2017 Obstetrics History GPAL:G 0 P 0 0 0 0 Immunizations Vaccine Type Date Status Note Provider Nam e and Address Organization Details Recorded Time Td (adult), 5 Lf tetanus toxoid, preservative free, adsorbed 6 completed Not Available [facility] 03/22/2019 02:43:39 Influenza, high-dose, quadrivalent, PF 0 completed Not Available [facility] 03/14/2023 12:27:14 SARS-COV-2 (COVID-19) vaccine, UNSPECIFIED 1 completed Not Available [facility] 03/14/2023 12:27:14 SARS-COV-2 (COVID-19) vaccine, UNSPECIFIED 1 completed Not Available [facility] 03/14/2023 12:27:14 Influenza, high-dose, quadrivalent, PF 1 completed Not Available [facility] 03/14/2023 12:27:14 COVID-19, mRNA, LNP-S, PF, 30 mcg/0.3 mL dose 1 completed Not Available [facility] 03/14/2023 12:27:14 pneumococcal polysaccharide PPV23 0 completed Not Available [facility] 03/14/2023 12:27:14 Influenza, split virus, quadrivalent, preservative 7 completed Not Available [facility] 03/22/2019 02:49:48 Influenza, split virus, quadrivalent, preservative 8 completed Not Available [facility] 03/22/2019 02:36:26 Influenza, high-dose, trivalent, PF 9 completed Not Available [facility] 03/22/2019 02:38:11 COVID-19, mRNA, LNP-S, PF, 30 mcg/0.3 mL dose, annabel-sucrose 2 completed Sunday Vanessa [place] null, [place] [facility] 10/13/2021 11:10:53 influenza, unspecified formulation 6 completed Not Available [facility] 03/14/2023 12:27:14 Influenza, high-dose, quadrivalent, PF 2 completed Deanna Patel [place], [place] [facility] 12/01/2021 16:49:31 Influenza, split virus, quadrivalent, preservative 5 completed Not Available [facility] 03/22/2019 02:32:09 Influenza, high-dose, quadrivalent, PF 3 completed Deanna Pat[place], [place] [facility] 12/25/2022 14:01:18 Influenza, high-dose, trivalent, PF 4 completed Albert Banegas MD Attn: Accounting[address] [place], [address], [place] [facility] 01/01/2024 14:05:49 COVID-19, mRNA, LNP-S, PF, 50 mcg/0.5 mL 4 completed Albert Banegas MD Attn: Accounting[address] [place], [address], [place] [facility] 02/08/2024 14:08:01 Pneumococcal conjugate PCV 13 5 completed Not Available [facility] 03/22/2019 02:40:26 Past Encounters Encounter ID Performer Location Encounter Start Date Encounter Closed Date Diagnosis/Indication Diagnosis SNOMED-CT Code Diagnosis ICD10 Code Diagnosis Note [id number] DANIELLA Egan (Adult Med) [address] [place] [address] 07/13/2014 10:57:43 07/13/2014 12:05:48 Essential hypertension 99356141 fair control Continue Propranolo l ( h/o hep C) Add Losarton Gastroesop hageal reflux disease 204497080 continue same Viral hepatitis C 89700740 not a candidate for rx due to M.Gravis Fecal occu lt blood: positive 940285070 Refer to GI for further evaluation ( pt is high risk for any procedures due to her Myasthenia ) [id number] Tami Shae Leonard (Adult Med) [address] [place] [address] 10/27/2014 11:21:18 10/27/2014 12:03:13 Essential hypertension 03575459 with hypotensio n hold propranolo l ( h/o hep C) today and restart tomorrow Hold Losarton for now bp check in 1 wk f/u in 1 month [id number] Samantha Mulligan Leonard (Adult Med) [address] [place] [address] 11/02/2014 09:29:50 11/02/2014 15:41:17 Essential hypertension [id number] [id number] Samantha Mulligan Leonard (Adult Med) [address] [place] [address] 11/10/2014 11:09:24 11/10/2014 11:36:07 Essential hypertension 71383972 [id number] Leonard (Adult Med) [address] [place] [address] 11/16/2014 09:15:48 11/17/2014 13:57:39 [id number] Tasha Stark Leonard (Adult Med) [address] [place] [address] 11/23/2014 09:44:59 11/23/2014 17:21:51 [id number] Leonard (Adult Med) [address] [place] [address] 11/27/2014 10:50:34 11/27/2014 12:42:50 Essential hypertension 67923138 Hypotensio n-resolved continue propranolo l Add Losarton at lower dose 25mg daily ( 50mg caused low bp) bp check in 1 month Osteopenia [id number] Amari ing vit D with ca pt was on Fosamax in the past and it was discontinu ed per pt Administra tion of influenza vaccine 08249633 [id number] [facility] [address] [place] [address] 12/22/2014 11:32:15 12/30/2014 11:29:22 Essential hypertension 68614402 I10 advised patient to keep follow up [id number] [facility] [address] [place] [address] 01/25/2015 11:10:22 01/26/2015 10:41:16 Essential hypertension 46732307 I10 [id number] [facility] [address] [place] [address] 03/01/2015 10:52:04 03/01/2015 11:38:39 Essential hypertension 20737570 I10 Administra tion of pneumococcal vaccine 17825387 Z23 Hyperglycemia 04629105 R 73.09 pt is on prednisone for Myasthenia Osteopenia 582432074 M85 .89 Taking vit D with ca pt to start on Fosamax [id number] [facility] [address] [place] [address] 08/04/2015 10:53:30 08/04/2015 16:37:49 Essential hypertension 62954143 I10 continue propranolo l and Losarton Osteopenia 738561223 M85 .89 Taking vit D with ca continue Fosamax ( pt is on steroid for Myasthenia ) Viral hepatitis C 182638 07 B19.20 pt is seeing GI , planning to start rx -awaiting to get approved her insurance Myasthenia gravis 125746 04 G70.00 meds per neurologis t Administra tion of diphtheria and tetanus vaccine 44223034 Z23 [id number] [facility] [address] [place] [address] 02/07/2016 10:49:59 02/07/2016 13:22:40 Mixed anxiety and depressive disorder 379673365 F41.8 start pt on Celexa Essential hypertension 97420824 I10 fair control-pt is under stresscont inue propranolo l and Losarton at lower dose 25mg daily ( 50mg caused low bp in the past )bp check in 1 month Viral hepatitis C 198740 07 B19.20 pt is on Harvoni-pt is seeing GIlabs showed elevated lFT /RBS>300 Hyperglycemia 63592535 R 73.09 pt is on prednisone for Myasthenia Cellulitis 821192496 L03 .90 on L/forearmp t is on immunosupp ressive meds Macrocytosis 948458281 D 75.89 [id number] MD Kobi Moreno (Adult Med) [address] [place] [address] 03/23/2016 10:36:31 03/24/2016 16:52:51 Diabetes mellitus 35339259 E11.9 new onsetInsur ance does not cover OnglyzaWil l try Metformine ERDM teaching Mixed anxi ety and depressive disorder 362494400 F41.8 pt declined med or counsellin g Essential hypertension 23577984 I10 fair control-pt is under stresscont inue propranolo l and Losarton at lower dose 25mg daily ( 50mg caused low bp in the past ) [id number] [facility] [address] [place] [address] 06/22/2016 10:50:34 06/22/2016 14:43:36 Diabetes mellitus 58099678 E11.9 improvingc ontinue Metformine ER Essential hypertension 96511072 I10 continue propranolo l and Losarton at lower dose 25mg daily ( 50mg caused low bp in the past ) Leukopenia 84437840 D72. 819 pt is on Azathiopri ne per neurologis t pt has apt in 2 wks with neuro-copy of lab results given to pt to take with her [id number] MD Gina Morenohalto (Adult Med) [address] [place] [address] 10/25/2016 12:24:12 10/31/2016 08:53:48 Medial epicondylitis 50206953 M77.02 pt to avoid chronic irritation warm compresspt is on prednisone [id number] MD Gina Morenohalto (Adult Med) [address] [place] [address] 12/25/2016 10:59:18 12/28/2016 18:10:10 Administration of influenza vaccine 07974658 Z23 Essential hypertension 22484732 I10 pt to discontinu e propranolo lLosarton at lower dose 25mg daily ( 50mg caused low bp in the past ) Diabetes mellitus 476344 09 E11.9 very well controlled continue Metformine ER will give Tramadol prn for arthritis of shoulder-p t takes occasional lyAvoid NSAID [id number] Roxana Barrett, [facility] ([id number]) 2 [facility] [address] [place] [address] 04/27/2017 10:28:54 05/01/2017 16:34:39 Gynecologic examination 65818157 Z01.359 [id number] [facility] [address] [place] [address] 06/27/2017 10:19:43 06/29/2017 16:08:56 Mixed anxiety and depressive disorder 273839510 F41.8 feeling better on Lexapro Diabetes mellitus 990090 09 E11.9 very well controlled continue Metformine ER pt to take Tramadol prn for arthritis of shoulder-p t takes occasional lyAvoid NSAID Essential hypertension 73147190 I10 Losarton at lower dose 25mg daily ( 50mg caused low bp in the past ) Myasthenia gravis 110495 04 G70.00 meds per neurologis t Shoulder joint pain 2679 44426 M25.512 check xray Osteopenia 292515117 M85 .89 Taking vit D with ca continue Fosamax ( pt is on steroid for Myasthenia ) [id number] [facility] [address] [place] [address] 10/24/2017 10:33:14 10/24/2017 15:32:05 Essential hypertension 91092507 I10 Losarton at lower dose 25mg daily ( 50mg caused low bp in the past ) Mixed anxi ety and depressive disorder 184448603 F41.8 feeling better on Lexapro Diabetes mellitus 094516 09 E11.9 very well controlled continue Metformine ER pt to take Tramadol prn for arthritis of shoulder-p t takes occasional lyAvoid NSAID Myasthenia gravis 040544 04 G70.00 meds per neurologis t [id number] Deanna Patel [facility] (Adult Med) [address] [place] [address] 12/12/2017 10:32:57 12/12/2017 11:10:26 Administration of influenza vaccine 07267281 Z23 [id number] Albert Banegas MD [facility] (Adult Med) [address] [place] [address] 03/11/2018 09:50:12 03/12/2018 12:36:21 Essential hypertension 36910542 I10 Losarton at lower dose 25mg daily ( 50mg caused low bp in the past ) Mixed anxi ety and depressive disorder 059011602 F41.8 feeling better on Lexapro Diabetes mellitus 946111 09 E11.9 very well controlled continue Metformine ER pt to take Tramadol prn for arthritis of shoulder-p t takes occasional lyAvoid NSAID Myasthenia gravis 725188 04 G70.00 meds per neurologis t [id number] Albert Banegas MD [facility] (Adult Med) [address] [place] [address] 05/02/2018 12:07:01 05/02/2018 14:50:12 Acute bronchitis 96725999 J20.9 [id number] Albert Banegas MD [facility] (Adult Med) [address] [place] [address] 07/23/2018 10:25:29 07/24/2018 12:01:37 Essential hypertension 55645776 I10 Losarton at lower dose 25mg daily ( 50mg caused low bp in the past ) Diabetes mellitus 544884 09 E11.9 very well controlled continue Metformine ER pt to take Tramadol prn for arthritis of shoulder-p t takes occasional lyAvoid NSAID Mixed anxi ety and depressive disorder 960941385 F41.8 feeling better on Lexapro Myasthenia gravis 964082 04 G70.00 meds per neurologis t Osteopenia 657107107 M85 .89 Taking vit D with ca continue Fosamax ( pt is on steroid for Myasthenia ) [id number] [facility] [address] [place] [address] 11/20/2018 09:58:40 11/22/2018 08:50:59 Impacted cerumen 00949371 H61.21 s/p irrigation Dizziness 736081410 R42 possibly due to R/ear cerumen impaction pt to keep good hydration may d/c losarton if problem continues in future pt to call if problem continues [id number] [facility] [address] [place] [address] 12/02/2018 10:15:12 12/02/2018 14:06:01 Administration of influenza vaccine 65855712 Z23 Essential hypertension 99161928 I10 pt stopped taking Losartonmo nitor bp Mixed anxi ety and depressive disorder 806816542 F41.8 feeling better on Lexapro Diabetes mellitus 205680 09 E11.9 very well controlled continue Metformine ER pt to take Tramadol prn for arthritis of shoulder-p t takes occasional lyAvoid NSAID Myasthenia gravis 555150 04 G70.00 meds per neurologis t [id number] Albert Banegas MD [facility] (Adult Med) [address] [place] [address] 03/18/2019 10:14:55 03/19/2019 16:10:46 Essential hypertension 42453525 I10 pt to go back on Losarton 25 mg daily Mixed anxi ety and depressive disorder 248595684 F41.8 feeling better on Lexapro Diabetes mellitus 921185 09 E11.9 very well controlled continue Metformine ER pt to take Tramadol prn for arthritis of shoulder-p t takes occasional lyAvoid NSAID Shoulder joint pain 2679 06481 M25.512 with hand arthritisp t takes tramadol prn Gastroesop hageal reflux disease 004435299 K21.9 pt to take famotidine [id number] [facility] [address] [place] [address] 07/24/2019 08:21:21 07/25/2019 08:01:55 Essential hypertension 28340888 I10 pt is on Losarton 25 mg daily Mixed anxi ety and depressive disorder 946071213 F41.8 feeling better on Lexapro Diabetes mellitus 331444 09 E11.9 very well controlled continue Metformine ER pt to take Tramadol prn for arthritis of shoulder-p t takes occasional lyAvoid NSAID Myasthenia gravis 523239 04 G70.00 meds per neurologis t [id number] [facility] [address] [place] [address] 11/03/2019 08:10:35 11/04/2019 12:47:15 Essential hypertension 04101547 I10 pt is on Losarton 25 mg daily Mixed anxi ety and depressive disorder 471832872 F41.8 feeling better on Lexapro Diabetes mellitus 615179 09 E11.9 very well controlled continue Metformine ER pt to take Tramadol prn for arthritis of shoulder-p t takes occasional lyAvoid NSAID Myasthenia gravis 976811 04 G70.00 meds per neurologis t Complainin g of - pain in toe 493069520 M79.675 of big toe -no redness or mild swelling .pt is on prednisone [id number] [facility] [address] [place] [address] 03/08/2020 08:31:06 03/09/2020 08:17:57 Essential hypertension 46356622 I10 pt is on Losarton 25 mg daily Diabetes mellitus 860798 09 E11.9 very well controlled continue Metformine ER pt to take Tramadol prn for arthritis of shoulder-p t takes occasional lyAvoid NSAID Mixed anxi ety and depressive disorder 351660677 F41.8 feeling better on Lexapro Myasthenia gravis 305598 04 G70.00 meds per neuro . [id number] [facility] [address] [place] [address] 07/12/2020 10:38:27 07/13/2020 10:59:25 Essential hypertension 15617395 I10 pt is on Losarton 25 mg daily Mixed anxi ety and depressive disorder 164693246 F41.8 feeling better on Lexapro Diabetes mellitus 520551 09 E11.9 very well controlled continue Metformine ER pt to take Tramadol prn for arthritis of shoulder-p t takes occasional lyAvoid NSAID Myasthenia gravis 938304 04 G70.00 meds per neuro . 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 - refer to [facility] for eval [id number] [facility] [address] [place] [address] 10/27/2020 10:31:28 11/01/2020 17:23:10 Exposure to SARS-CoV-2 762959860 Z20.822 -pt is fully vaccinated -self isolation /preventiv e measures including vit C and vit D discussed with pt- discussed about monoclonal antibodies rx for post exposure px within 4 days of exposure with clinical trials - discussed about benefits and risks - pt has decided not to proceed with monoclonal atntibodie s rx at this time- pt to go to ER if she develops any symptoms since she is high risk for complicati on [id number] MD Gina Morenohalto (Adult Med) [address] [place] [address] 11/09/2020 10:36:08 11/10/2020 10:19:33 Essential hypertension 34040503 I10 pt is on Losarton 25 mg daily Diabetes mellitus 995965 09 E11.9 very well controlled continue Metformine ER pt to take Tramadol prn for arthritis of shoulder-p t takes occasional lyAvoid NSAID Mixed anxi ety and depressive disorder 579730869 F41.8 feeling better on Lexapro Anti-nucle ar factor detected 127584598 R76.8 with Sjogrens /RF -positive - refered to [facility] for eval Myasthenia gravis 786986 04 G70.00 meds per neuro . Screening mammography 24 473705 Z12.31 [id number] MD Gina Morenohalto (Adult Med) [address] [facility] [address] [place] [address] 02/14/2021 11:02:58 02/15/2021 13:11:11 Essential hypertension 70210414 I10 pt is on Losarton 25 mg daily Diabetes mellitus 999157 09 E11.9 very well controlled -pt to hold Metformine ER for now pt to take Tramadol prn for arthritis of shoulder-p t takes occasional lyAvoid NSAID Mixed anxi ety and depressive disorder 307655013 F41.8 feeling better on Lexapro Anti-nucle ar factor detected 932972751 R76.8 with Sjogrens /RF -positive - refered to rehumatolo gist for eval Myasthenia gravis 319498 04 G70.00 meds per neuro . Multiple a ctinic keratoses 452001892 L57.0 on arm and r/thigh-pt to see dermatolog ist [id number] [facility] [address] [facility] [address] [place] [address] 05/23/2021 10:42:16 05/24/2021 08:39:09 Essential hypertension 97221933 I10 pt is on Losarton 25 mg daily Mixed anxi ety and depressive disorder 957047855 F41.8 feeling better on Lexapropt has sleep issues - pt to try sleep hygiene and otc melatonin Diabetes mellitus 664277 09 E11.9 very well controlled -pt to discontinu e Metformine ER for now pt to take Tramadol prn for arthritis of shoulder-p t takes occasional lyAvoid NSAID Myasthenia gravis 161679 04 G70.00 meds per neuro . Anti-nucle ar factor detected 098961639 R76.8 with Sjogrens /RF -positive - refered to rehumatolo gist for eval -has apt in a month Gastroesop hageal reflux disease 786467780 K21.9 pt to take famotidine pt to hold fosamax for a month and see if any improvemen t Vitamin D deficiency 347 46046 E55.9 [id number] MD Kobi Moreno (Adult Med) [address] [place] [address] 06/28/2021 12:10:22 06/29/2021 13:29:45 Upper respiratory infection 34385464 J06.9 -completed Zpakpt to take flonase and antihistam ine [id number] [facility] [address] [place] [address] 07/06/2021 12:25:30 07/08/2021 08:20:23 Acute sinusitis 41650962 J01.90 -keep good hydration Otalgia 67644728 H92.01 with muffled sound and poor hearing - pt to see ENT [id number] [facility] [address] [facility] [place] [address] 07/12/2021 11:01:21 07/13/2021 07:15:59 Impacted cerumen 60682584 H61.20 Serous otitis media 8032 7007 H65.93 follow back for myringotom ies [id number] [facility] [address] [place] [address] 07/26/2021 11:00:53 07/27/2021 13:07:32 Postoperative visit 943479608 Z09 [id number] [facility] [address] [place] [address] 08/30/2021 11:05:08 08/31/2021 08:24:02 Chronic serous otitis media 77999215 H65.23 ears cleared return PRN [id number] [facility] [address] [place] [address] 08/31/2021 10:53:15 09/01/2021 08:12:04 Essential hypertension 64469226 I10 pt is on Losarton 25 mg daily Mixed anxi ety and depressive disorder 548021517 F41.8 feeling better on Lexapropt has sleep issues - pt to try sleep hygiene and otc melatonin Diabetes mellitus 628303 09 E11.9 very well controlled with diet -d/linwood Metformine ER for now Anti-nucle ar factor detected 306644905 R76.8 with Sjogrens /RF -positive - refered to [facility] for eval -pt declined to see one at this time Myasthenia gravis 409702 04 G70.00 meds per neuro . [id number] Sunday Vanessa MA [facility] (Adult Med) [address] [place] [address] 10/13/2021 10:18:36 10/14/2021 09:54:30 Administration of SARS-CoV-2 mRNA vaccine 5862700879 Z23 [id number] Albert Banegas MD [facility] (Adult Med) [address] [place] [address] 10/28/2021 11:01:23 10/31/2021 06:48:46 Atrial fibrillation 54548248 I48.91 -stable on metoprolol and eliquispt sees cardio- pt to call and make apt Essential hypertension 22154161 I10 with atrial fib -continue metoprolol -pt is off of Losarton [id number] [facility] [address] [place] [address] 12/01/2021 10:56:54 12/02/2021 07:11:04 Mixed anxiety and depressive disorder 943752202 F41.8 feeling better on Lexapropt has sleep issues - pt to try sleep hygiene and otc melatonin Diabetes mellitus 654660 09 E11.9 very well controlled with diet-a1c -5.5 today-d/ce d Metformine ER for now Essential hypertension 62905074 I10 with atrial fib -continue metoprolol -pt is off of Losarton Atrial fibrillation 4943 6004 I48.91 -stable on metoprolol and eliquispt sees cardio- pt to call and make apt Myasthenia gravis 946253 04 G70.00 meds per neuro . Administra tion of influenza vaccine 81412742 Z23 [id number] [facility] [address] [place] [address] 04/13/2022 10:24:52 04/18/2022 16:22:06 Essential hypertension 24920601 I10 with atrial fib -continue metoprolol -pt was off of Losarton which was restarted by her cardio recently due to elevated bp Mixed anxi ety and depressive disorder 588284631 F41.8 feeling better on Lexapropt has sleep issues - pt to try sleep hygiene and otc melatonin Diabetes mellitus 435419 09 E11.9 very well controlled with diet-d/linwood Metformine ER for now Myasthenia gravis 354121 04 G70.00 meds per neuro . Atrial fibrillation 4943 6004 I48.91 -stable on metoprolol and eliquispt sees cardio [id number] MD Gina Morenohalto (Adult Med) [address] [place] [address] 08/29/2022 10:25:56 08/31/2022 11:03:38 Fracture of patella 69657266 S82.001D -s/p sx on 08/2022-pt is on brace on R/lower leg-pt to hold fosamax for now Essential hypertension 25586069 I10 with atrial fib -continue metoprolol -pt was off of [place]arton which was restarted by her cardio recently due to elevated bp Diabetes mellitus 206625 09 E11.9 very well controlled with diet-d/linwood Metformin ER for now Mixed anxi ety and depressive disorder 209040423 F41.8 -not well controlled -discussed about meditation and mindfulnes s-pt is on Lexapropt has sleep issues - pt to try sleep hygiene and otc melatonin Myasthenia gravis 974681 04 G70.00 meds per neuro . Atrial fibrillation 4943 6004 I48.91 -stable on metoprolol and eliquispt sees cardio Acute bronchitis 4727669 2 J20.9 -keep good hydration [id number] MD Gina Morenohalto (Adult Med) [address] [place] [address] 10/16/2022 10:50:22 10/18/2022 15:00:13 Mixed anxiety and depressive disorder 489914678 F41.8 -improving -discussed about meditation and mindfulnes s-pt is on Lexapropt has sleep issues - pt to try sleep hygiene and otc melatonin Essential hypertension 93615818 I10 with atrial fib -continue metoprolol -pt was off of Losarton which was restarted by her cardio recently due to elevated bp and also on amlodipine 2.5 mg daily - pt to to increase to 5 mg daily Atrial fibrillation 4943 6004 I48.91 -stable on metoprolol and eliquispt sees cardio Diabetes mellitus 814122 09 E11.9 very well controlled with diet-d/linwood Metformin ER for now [id number] [facility] [address] [place] [address] 12/25/2022 09:48:14 12/26/2022 09:37:52 Essential hypertension 68935524 I10 with atrial fib -continue metoprolol -taking 50mg bid per cardio-pt is back on Losarton which was restarted by her cardio recently due to elevated bp and also on amlodipine 2.5 mg daily Mixed anxi ety and depressive disorder 503793951 F41.8 -improving -discussed about meditation and mindfulnes s-pt is on Lexapropt has sleep issues - pt to try sleep hygiene and otc melatonin Diabetes mellitus 723771 E11.9 very well controlled with diet-d/linwood Metformin ER for now Administra tion of influenza vaccine 14548336 Z23 [id number] [facility] [address] [place] [address] 4 04/03/2023 10:39:00 04/04/2023 12:23:02 Essential hypertension 96580311 I10 with atrial fib -continue metoprolol -taking 50mg bid per cardio-pt is back on Losarton which was restarted by her cardio recently due to elevated bp and also on amlodipine 2.5 mg daily Mixed anxi ety and depressive disorder 435286466 F41.8 -improving -discussed about meditation and mindfulnes s-pt is on Lexapropt has sleep issues - pt to try sleep hygiene and otc melatonin Atrial fibrillation 4943 6004 I48.91 -stable on metoprolol and eliquispt sees cardio Diabetes mellitus 545944 09 E11.9 very well controlled with diet-d/linwood Metformin ER for now Myasthenia gravis 090730 04 G70.00 meds per neuro . Anemia 948942249 D64.9 - pt is on eliquis Osteopenia 102022941 M85 .89 Taking vit D with ca continue Fosamax ( pt is on steroid for Myasthenia )- pt had bad reflux -recently underwent egd- pt to see endo for eval and may be a good candidate for reclast infusion [id number] MD Gina Morenohalto (Adult Med) [address] [facility] [address] [place] [address] 07/03/2023 10:05:36 07/03/2023 20:46:44 Essential hypertension 35639146 I10 with atrial fib -continue metoprolol -taking 50mg bid per cardio-pt is back on Losarton which was restarted by her cardio recently due to elevated bp and also on amlodipine 2.5 mg daily Mixed anxi ety and depressive disorder 493451675 F41.8 -improving -discussed about meditation and mindfulnes s-pt is on Lexapropt has sleep issues - pt to try sleep hygiene and otc melatonin Diabetes mellitus 169748 09 E11.9 very well controlled with diet-d/linwood Metformin ER for now Hyperlipidemia 38266201 E78.5 - pt is on statin Osteoporosis 15795375 M8 1.0 Taking vit D with ca continue Fosamax ( pt is on steroid for Myasthenia )- pt had bad reflux -recently underwent egd- pt sees endo for eval and a good candidate for reclast infusion Myasthenia gravis 736799 04 G70.00 meds per neuro . [id number] [facility] [address] [facility] [address] [place] [address] 10/02/2023 11:10:23 10/05/2023 13:55:41 Essential hypertension 33359116 I10 with atrial fib -continue metoprolol -taking 50mg bid per cardio-pt is back on Losarton which was restarted by her cardio recently due to elevated bp and also on amlodipine 2.5 mg dailypt to lower 1/2 tab lsoartan due to tiredness and dizziness Diabetes mellitus 993698 09 E11.9 very well controlled with diet-d/linwood Metformin ER for now Mixed anxi ety and depressive disorder 053207652 F41.8 -improving -discussed about meditation and mindfulnes s-pt is on Lexapropt has sleep issues - pt to try sleep hygiene and otc melatonin Hyperlipidemia 48109392 E78.5 - pt is on statin Atrial fibrillation 4943 6004 I48.91 -stable on metoprolol and eliquispt sees cardio Myasthenia gravis 884284 04 G70.00 meds per neuro . [id number] MD Gina Morenohalto (Adult Med) [address] [place] [address] 01/01/2024 10:27:30 01/02/2024 16:45:13 Essential hypertension 26785981 I10 with atrial fib -continue metoprolol -taking 50mg bid per cardio-pt is back on losartan which was restarted by her cardio recently due to elevated bp and also on amlodipine dailypt to lower 1/2 tab losartan due to tiredness and dizziness Diabetes mellitus 126818 09 E11.9 very well controlled with diet-d/linwood Metformin ER for now Mixed anxi ety and depressive disorder 806202274 F41.8 -improving -discussed about meditation and mindfulnes s-pt is on Lexapropt has sleep issues - pt to try sleep hygiene and otc melatonin Atrial fibrillation 4943 6004 I48.91 -stable on metoprolol and eliquispt sees cardio Myasthenia gravis 094411 04 G70.00 meds per neuro . Administra tion of influenza vaccine 07431247 Z23 Shoulder joint pain 2679 90820 M25.512 with hand arthritisp t takes tramadol prn Ischial bursitis 5901416 03 M70.71 -ice /avoid sitting on hard surface /donutpt to call if problem continues -consider imaging since pt is on residential prednisone and osteoporos is [id number] MD Gina Morenohalto (Adult Med) [address] [place] [address] 02/08/2024 10:22:34 02/14/2024 15:25:49 Essential hypertension 94534939 I10 with atrial fib -continue metoprolol -taking 50mg bid per cardio-pt is back on losartan which was restarted by her cardio recently due to elevated bp and also on amlodipine daily Diabetes mellitus 946280 09 E11.9 very well controlled with diet-d/linwood Metformin ER for now Administra tion of SARS-CoV-2 mRNA vaccine 4891424315 Z23 Backache 926534329 M54.9 -possibly due to musculoske letal painpt denied any pain at this time-check xray Health Concerns Section Related Observation LastModified by Organization Detai ls LastModified Time None Recorded Concern Status LastModified by Organization Details LastModified Time None Recorded Advance Directives Directive N: Payers Encounter Date Sequence Insurance Name Policy Number Policy Rodríguez Covered Member ID Rodríguez Member ID Guarantor Name 07/03/2023 1 [place] Genna Calhoun [id number] Genna Calhoun 07/03/2023 2 [place] OR MEDICARE REPLACEMENT PRIMARY) Genna Calhoun [id number] Genna Calhoun 10/02/2023 1 [place] Gen[place] Calhoun [id number] Genna Calhoun 10/02/2023 2 [place]PLACEMENT [place]) Genna Calhoun [id number] Genna Calhoun 01/01/2024 1 [place] Genna Calhoun [id number] Genna Calhoun 01/01/2024 2 [place]PLACEMENT [place]) Genna Calhoun [id number] Genna Calhoun 02/08/2024 1 [place] Genna Calhoun [id number] Genna Calhoun 02/08/2024 2 [place]PLACEMENT [place]) Genna Calhoun [id number] Genna Calhoun Notes Date Note Type Note Provider Name and Address Organization Details Recorded Time 07/03/2023 text/html Anxiety/Depressi onRepo rted bypatient.Quality:symp toms improved Severity:denies suicidal ideations; does not interfere with activities of daily living Duration:symptoms lasting over 2 weeks Onset/Timing:gradual Context:major life stressors(health issues) Modifying Factors:medications as directed Associated Symptoms:denies homicidal ideations; mood good;depression(better );sleep disturbances(some days)Diabetes F/UReported bypatient.Labs:last A1C result: 5.9 Context:seeing eye doctor regularly; checking feet regularly Associated Symptoms:no weight gain; no dizziness; no headaches; no calluses on feetNotes:pt is off of metformin /following diabetic diet at present timeHypertension F/UReported bypatient.Associated Symptoms:no dizziness; no lightheadedness; no chest pain; no shortness of breath; no palpitations; no edema Lifestyle:regular exercise; limiting/avoiding salt Medications:taking medications as directed; no side effects from medicationNotes:pt was started back on losartan /pt still taking metoprolol pt went to ER following accidental fall , found to have displaced R/patellar fx -underwent sx , seeing ortho /PTpt also found to have atrial fib with RVR , started on metorpolol with eliquis. losartan discontinued pt sees specialists for Myasthenia , takes meds as prescribed .pt is on prednisone . Albert Banegas MD Attn: Accounting,[address] [place], [address], [facility] 07/03/2023 14:01:08 10/02/2023 text/html Anxiety/Depressi onRepo rted bypatient.Quality:symp toms improved Severity:denies suicidal ideations; does not interfere with activities of daily living Duration:symptoms lasting over 2 weeks Onset/Timing:gradual Context:major life stressors(health issues) Modifying Factors:medications as directed Associated Symptoms:denies homicidal ideations; mood good;depression(better );sleep disturbances(some days)Diabetes F/UReported bypatient.Labs:last A1C result: 6.2 Context:seeing eye doctor regularly; checking feet regularly Associated Symptoms:no weight gain; no dizziness; no headaches; no calluses on feetNotes:pt is off of metformin /following diabetic diet at present timeHypertension F/UReported bypatient.Associated Symptoms:no dizziness; no lightheadedness; no chest pain; no shortness of breath; no palpitations; no edema Lifestyle:regular exercise; limiting/avoiding salt Medications:taking medications as directed; no side effects from medicationNotes:pt was started back on losartan /pt still taking metoprolol pt had an accidental fall , found to have displaced R/patellar fx -underwent sx , seen by ortho /PTpt also found to have atrial fib with RVR , started on metorpolol with eliquis. losartan discontinued pt sees specialists for Myasthenia , takes meds as prescribed .pt is on prednisone . Albert Banegas MD Attn: Accounting[address] [facility], [place], [address], [facility] 10/02/2023 11:48:39 01/01/2024 text/html Anxiety/Depressi onRepo rted bypatient.Quality:symp toms improved Severity:denies suicidal ideations; does not interfere with activities of daily living Duration:symptoms lasting over 2 weeks Onset/Timing:gradual Context:major life stressors(health issues) Modifying Factors:medications as directed Associated Symptoms:denies homicidal ideations; mood good;depression(better );sleep disturbances(some days)Diabetes F/UReported bypatient.Labs:last A1C result: 6.2 Context:seeing eye doctor regularly; checking feet regularly Associated Symptoms:no weight gain; no dizziness; no headaches; no calluses on feetNotes:pt is off of metformin /following diabetic diet at present timeHypertension F/UReported bypatient.Associated Symptoms:no dizziness; no lightheadedness; no chest pain; no shortness of breath; no palpitations; no edema Lifestyle:regular exercise; limiting/avoiding salt Medications:taking medications as directed; no side effects from medicationNotes:pt was started back on losartan /pt still taking metoprolol pt had an accidental fall , found to have displaced R/patellar fx -underwent sx , seen by ortho /PTpt also found to have atrial fib with RVR , started on metorpolol with eliquis. losartan discontinued pt sees specialists for Myasthenia , takes meds as prescribed .pt is on prednisonept is also complaining of pain in R/buttock area started more than a wk ago , achy feeling Albert Banegas MD Attn: Accounting[address] [facility], [place], [address], [facility] 01/01/2024 14:09:13 02/08/2024 text/html Back PainReporte d bypatient.Location:L/l ower back Severity:improving;mod erate (5-7) Duration:chronic Context:prior back problems Associated Symptoms:no fever; no incontinence pt had an accidental fall , found to have displaced R/patellar fx -underwent sx , seen by ortho /PT pt sees specialists for Myasthenia , takes meds as prescribed .pt is on prednisone Albert Banegas MD Attn: Accounting[address] [place], [address], [facility] 02/08/2024 14:15:29 OBGyn Episode No OBEpisode recorded.
--- OUTSIDE RECORDS SUMMARY | 2024-04-18 18:28 | XMS_ITS | Encounter Summary ---
Author Organization [facility] Address [address] [place] [address] Phone Care Team Providers Care Tail Board Man Name Role Phone Albert Beauchamp MD Primary Care Provider Jamie Ochoa DO Unavailable [phone] Rosa Arreguin PAC Unavailable Sandhya Gonzalez APRN, ASSEMBLER PING PONG TABLE Unavailable Justyn Barrera MD Unavailable [phone] Clari Rubio MD Unavailable Reason for Visit * Reason Comments Medication Refill Encounter Details Date Type Department Care Team (Late st Contact Info) Description 01/02/2021 Refill [facility] - G[facility]ology - [place] [address] [place] [phone] Rosa Arreguin, PAC [address] [place] [address] Medication Refill Social History Tobacco Use Types [...] file Not on file Not on file COVID-19 Exposure Response Date Recorded In the last month, have you been in contact with someone who was confirmed or suspected to have Coronavirus / COVID-19? No / Unsure 12/23/2020 2:04 PM CDT documented as of this encounter Miscellaneous Notes * Telephone Encounter - Kendy Servin RN - 01/04/2021 11:09 AM CDT Omeprazole refill request too soon and Dicyclomine noted to be discontinued on 11/11/2020 by Kyle CABAN, reason: alternate therapy. Medication refused. * Telephone Encounter - Kendy Servin RN - 01/04/2021 11:01 AM CDT Pharmacy requesting refill of: Requested Prescriptions Pending Prescriptions Disp Refills ??? omeprazole (PriLOSEC) 40 MG CAPSULE DELAYED RELEASE [Pharmacy Med Name: OMEPRAZOLE 40MG CAPSULES] 90 Capsule 0 Sig: TAKE 1 CAPSULE BY MOUTH DAILY ??? dicyclomine (BENTYL) 10 MG Capsule [Pharmacy Med Name: DICYCLOMINE 10MG CAPSULES] 90 Capsule 3 Sig: TAKE 1 CAPSULE BY MOUTH THREE TIMES DAILY Last fill: omeprazole 12/27/2020 for 90 caps. Bentyl noted to be discontinued on 11/11/2020, reason: alternative therapy. Patients last OV with GI: 11/11/2020 Next Office Visit with GI: Recall noted per chart review. documented in this encounter Plan of Treatment Upcoming Encounters Date Type Department Care Team (Late st Contact Info) Description 06/30/2024 10:00 AM CDT Office Visit [facility] - Endocrinology [facility] [address] [place] [address] Clari Rubio MD [address] [address] 07/25/2024 10:00 AM CDT Office Visit [facility] - Gastroenterology - [place] [address] [place] [address] Sandhya Gonzalez APRN, ASSEMBLER PING PONG TABLE [address] [place] [address] documented as of this encounter Visit Diagnoses Not on filedocumented in this encounter Additional Health Concerns Infection Onset Date Last Indicated Resolved Time COVID - 19 Confirmed 01/16/2022 01/16/2022 022 12:16 AM DIAMOND DIE DRILLER documented as of this encounter Care Teams Tail Board Man Relationship Specialty Start Date End Date Albert Beauchamp MD [address] [place] [address] PCP - General Internal Medicine 06/07/15 Jamie Ochoa DO [address] [place] [address] Gastroenterology 07/20/15 Rosa Arreguin Nettie, [facility] [address] [place] [address] Physician Sheriff Physician Sheriff 07/11/21 Sandhya Gonzalez APRN, ASSEMBLER PING PONG TABLE [address] [place] [address] Nurse Practitioner Advanced Practice Nurse 01/30/23 Justyn Barrera MD [address] [facility] [place] [address] Consulting Physician Gastroenterology 05/25/22 Clari Rubio MD [address] [address] Consulting Physician Endocrinology 05/21/23 documented as of this encounter
--- OUTSIDE RECORDS SUMMARY | 2024-04-18 18:28 | XMS_ITS | Encounter Summary ---
Author Organization [facility] Address [address] [place] [address] Care Team Providers Care Dairy Cattle Farmer Name Role Phone Albert Beauchamp MD Primary Care Provider [phone] Encounter Details Date Type Department Care Team (Late st Contact Info) Description 07/29/2019 Telephone [facility] - Family Medicine [address] [place] [phone] Abdelrahman Garduno MD [address] [place] [phone] Social History Tobacco Use Types Packs/Day Years Used Date Smoking Tobacco: Never Assessed Sex and Gender Information Value Date Recorded Sex Assigned at Not on file Gender Identity Not on file Sexual Orientation Not on file documented as of this encounter Miscellaneous Notes * Telephone Encounter - Beckie Barger - 07/29/2019 3:43 PM CDT Genna wants to know if we can call in her suppository we have sent in before? alicia smith documented in this encounter Plan of Treatment Not on file documented as of this encounter Visit Diagnoses Not on filedocumented in this encounter Care Teams Dairy Cattle Farmer Relationship Specialty Start Date End Date Albert Beauchamp MD [address] [place] [address] PCP - General 10/30/17 documented as of this encounter
--- OUTSIDE RECORDS SUMMARY | 2024-04-18 18:28 | XMS_ITS | Clinical Summary ---
Author Organization [facility] Address [address] [place] [address] Care Team Providers Care Photographic Hand Developer Name Role Phone Albert Beauchamp MD Primary Care Provider [phone] Source Comments [facility],non-owned Affiliates and Associated Physician Practices is amultiple site organization consisting of ambulatory clinics and hospital sitesin [place], [place], [place] and [place]. This disclosure is being madepursuant to the Care Everywhere program and may not contain all information available regarding this patient. Last updated 17.[facility] Encounters Date Type Department Care Team Description 04/07/2024 Refill [facility] V[facility] [address] [place] [address], [address] [address] Anne-Marie Capps MD Refill Request from Last 3 Months Social History Tobacco Use Types Packs/Day Years Used Date Smoking Tobacco: Never Assessed Sex and Gender Information Value Date Recorded Sex Assigned at Not on file Gender Identity Not on file Sexual Orientation Not on file Plan of Treatment Health Maintenance Due Date Last Done Comments BONE DENSITY TESTING 1945 MEDICARE AWV 12 MONTHS 1945 HEPATITIS C SCREENING 10/21/1964 DTAP/TDAP/TD VACCINES (1 - Tdap) 1965 PNEUMOCOCCAL VACCINE 50+ (1 of 1 - PCV) 1996 ZOSTER VACCINE (1 of 2) 1996 Respiratory Syncytial Virus (RSV) Vaccine Pt: or over 60 yrs (1 - 1-dose 75+ series) 2021 COVID-19 VACCINE (2 - 2023- season) 2023 02/01/2021 INFLUENZA VACCINE (#1) 2023 9, 12/12/2017, 12/25/2016, Additional history exists DEPRESSION SCREENING 03/05/2024 HEPATITIS B VACCINE Aged Out No longe r eligible based on patient's age to complete this topic HIB VACCINE Aged Out No longer eligi ble based on patient's age to complete this topic HPV VACCINE Aged Out No longer eligi ble based on patient's age to complete this topic MENINGOCOCCAL (Group B) VACCINE Aged Out No longer eligible based on patient's age to complete this topic MENINGOCOCCAL VACCINE Aged Out No carmina avila eligible based on patient's age to complete this topic Care Teams Photographic Hand Developer Relationship Specialty Start Date End Date Albert Beauchamp MD [address] [place] [address] PCP - General 10/30/17
--- OUTSIDE RECORDS SUMMARY | 2024-04-18 18:28 | XMS_ITS | Encounter Summary ---
Author Organization [facility] Address [address] [address] Phone Care Team Providers Care Attacher Name Role Phone Albert Beauchamp MD Primary Care Provider [phone] Jamie Ochoa DO Unavailable [phone] Rosa Arreguin Nettie [facility] Unavailable Sandhya Gonzalez APRN, [facility] Unavailable Justyn Barrera MD Unavailable [phone] Clari Rubio MD Unavailable Reason for Visit * Reason Comments Medication Refill Encounter Details Date Type Department Care Team (Late st Contact Info) Description 02/19/2020 Refill [facility] - [place] [address] [place] [phone] Jamie Ochoa, [address] [facility] [address] Medication Refill Social History Tobacco Use Types [...] encounter Miscellaneous Notes * Telephone Encounter - Alyce Ramos CMA - 02/19/2020 8:12 AM FINANCIAL SYSTEMS ANALYST Pharmacy requesting refill of: Requested Prescriptions Pending Prescriptions Disp Refills ??? dicyclomine (BENTYL) 10 MG Capsule [Pharmacy Med Name: DICYCLOMINE 10MG CAPSULES] 90 Cap 0 Sig: TAKE ONE CAPSULE BY MOUTH THREE TIMES DAILY Last fill: 01/14/2020 Patients last OV with GI: 12/03/2019 Next Office Visit with GI: Recall for 1 year office visit follow up NCIAL SYSTEMS ANALYST documented in this encounter Plan of Treatment Upcoming Encounters Date Type Department Care Team (Late st Contact Info) Description 06/30/2024 10:00 AM CDT Office Visit [facility] - Endocrinology - [place] [address] [place] [phone] Clari Rubio MD [address] [address] 07/25/2024 10:00 AM CDT Office Visit [facility] - Gastroenterology - [place] [address] [place] [address] Sandhya Gonzalez APRN, WAREHOUSE OPERATIONS ASSOCIATE [address] [place] [address] documented as of this encounter Visit Diagnoses Not on filedocumented in this encounter Additional Health Concerns Infection Onset Date Last Indicated Resolved Time COVID - 19 Confirmed 01/16/2022 01/16/2022 022 12:16 AM FINANCIAL SYSTEMS ANALYST documented as of this encounter Care Teams Attacher Relationship Specialty Start Date End Date Albert Beauchamp MD [address] [place] [address] PCP - General Internal Medicine 06/07/15 Jamie Ochoa DO [address] [place] [address] Gastroenterology 07/20/15 Rosa Arreguin Nettie, [facility] [address] [place] [address] Physician Supervisor Accounting Clerks Physician Supervisor Accounting Clerks 07/11/21 Sandhya Gonzalez APRN, WAREHOUSE OPERATIONS ASSOCIATE [address] [place] [address] Nurse Practitioner Advanced Practice Nurse 01/30/23 Justyn Barrera MD [address] [place] [address] Consulting Physician Gastroenterology 05/25/22 Clari Rubio MD [address] [address] Consulting Physician Endocrinology 05/21/23 documented as of this encounter
--- OUTSIDE RECORDS SUMMARY | 2024-04-18 18:28 | XMS_ITS | Referral Summary ---
Author Organization [facility] Address [address] [facility] [place] [address] Care Team Providers Care Reporter Anchor Name Role Phone Albert Beauchamp MD Primary Care Provider [phone] Source Comments [facility],non-owned Affiliates and Associated Physician Practices is amultiple site organization consisting of ambulatory clinics and hospital sitesin [place], [place], [place] and [place]. This disclosure is being madepursuant to the Care Everywhere program and may not contain all information available regarding this patient. Last updated 17.[facility] Encounters Date Type Department Care Team Description 04/07/2024 Refill [facility] Heart & Vascular Care [address] [place] [address], [address] [address] Anne-Marie Capps MD Refill Request from Last 3 Months Social History Tobacco Use Types Packs/Day Years Used Date Smoking Tobacco: Never Assessed Sex and Gender Information Value Date Recorded Sex Assigned at Not on file Gender Identity Not on file Sexual Orientation Not on file Plan of Treatment Not on file Care Teams Reporter Anchor Relationship Specialty Start Date End Date Albert Beauchamp MD [address] [place] [address] PCP - General 10/30/17
--- OUTSIDE RECORDS SUMMARY | 2024-04-18 18:28 | XMS_ITS | Encounter Summary ---
Author Organization [facility] Address [address] [place] [address] Phone Care Team Providers Care Director Group Sales Name Role Phone Albert Beauchamp MD Primary Care Provider Jamie Ochoa DO Unavailable [phone] Rosa Arreguin Nettie PAC Unavailable [phone] aSndhya Gonzalez APRN, SENIOR TEST ENGINEER Unavailable Justyn Barrera MD Unavailable [phone] Clari Rubio MD Unavailable Reason for Visit * Reason Comments Medication Refill Encounter Details Date Type Department Care Team (Late st Contact Info) Description 11/12/2023 [facility]ill [facility] - Gastroenterology - [place] [address] [place] [address] Sandhya Gonzalez APRN, SENIOR TEST ENGINEER [address] [place] [address] Medication Refill Social History Tobacco Use Types Packs/Day Years Used Date Smoking Tobacco: Never Smokeless Tobacco: Never Alcohol Use Standard Drinks/Week Comments Yes 0 (1 standard drink = 0.6 oz pur e alcohol) occassioal Sexually Active Control Partners Comments Not Currently Comments No Sex and Gender Information Value [...] Telephone Encounter - Kendy Servin RN - 11/12/2023 1:53 PM CDT Medication [facility] and [facility] medication standing order for pediatric and adult patients. documented in this encounter Plan of Treatment Upcoming Encounters Date Type Department Care Team (Late st Contact Info) Description 06/30/2024 10:00 AM CDT Office Visit [facility] Medical Group - Endocrinology - [place] [address] [place] [address] Clari Rubio MD #[address] [address] 07/25/2024 10:00 AM CDT Office Visit [facility] Medical [facility] - Gastroenterology - [place] [address] [place] [address] Sandhya Gonzalez APRN, SENIOR TEST ENGINEER [address] [place] [address] documented as of this encounter Visit Diagnoses Not on filedocumented in this encounter Care Teams Director Group Sales Relationship Specialty Start Date End Date Albert Beauchamp MD [address] [place], [place] [id number] PCP - General Internal Medicine 06/07/15 Jamie Ochoa DO [address] [place] [address] Gastroenterology 07/20/15 Rosa Arreguin PAC [address] [place] [address] Physician Can Reforming Machine Operator Physician Can Reforming Machine Operator 07/11/21 Sandhya Gonzalez APRN, SENIOR TEST ENGINEER [address] [place] [address] Nurse Practitioner Advanced Practice Nurse 01/30/23 Justyn Barrera MD [address]2 [place] [address] Consulting Physician Gastroenterology 05/25/22 Clari Rubio MD #[address] [address] Consulting Physician Endocrinology 05/21/23 documented as of this encounter
--- OUTSIDE RECORDS SUMMARY | 2024-04-18 18:28 | XMS_ITS | Patient Health Summary ---
Author Organization [facility] Address [address] [place] [address] Care Team Providers Care Siding Coreboard Inspector Name Role Phone Albert Beauchamp MD Primary Care Provider [phone] Note from [facility],non-owned Affiliates and Associated Physician Practices is amultiple site organization consisting of ambulatory clinics and hospital sitesin [place], [place], [place] and [place]. This disclosure is being madepursuant to the Care Everywhere program and may not contain all information available regarding this patient. Last updated 17.[facility] Social History Tobacco Use Types Packs/Day Years Used Date Smoking Tobacco: Never Assessed Sex and Gender Information Value Date Recorded Sex Assigned at Not on file Gender Identity Not on file Sexual Orientation Not on file Care Teams Siding Coreboard Inspector Relationship Specialty Start Date End Date Albert Beauchamp MD [address] [place], [place] [id number] PCP - General 10/30/17
--- OUTSIDE RECORDS SUMMARY | 2024-04-18 18:28 | XMS_ITS | Encounter Summary ---
Author Organization [facility] Address [address] [place] [address] Phone Care Team Providers Care Drill Punch Operator Name Role Phone Albert Beauchamp MD Primary Care Provider Jamie Ochoa DO Unavailable [phone] Rosa Arreguin Nettie PAC Unavailable [phone] Sandhya Gonzalez APRN, HARDWARE INSTALLER Unavailable Justyn Barrera MD Unavailable [phone] Clari Rubio MD Unavailable Reason for Visit * Reason Comments Medication Refill Encounter Details Date Type Department Care Team (Late st Contact Info) Description 08/13/2023 Refill [facility] - Gastroenterology - [place] [address] [place] [address] Sandhya Gonzalez APRN, HARDWARE INSTALLER [address] [place] [address] Medication Refill Social History Tobacco Use Types [...] Telephone Encounter - Kendy Servin RN - 08/13/2023 11:21 AM CDT Medication [facility] and [facility] medication standing order for pediatric and adult patients. documented in this encounter Plan of Treatment Upcoming Encounters Date Type Department Care Team (Late st Contact Info) Description 06/30/2024 10:00 AM CDT Office Visit [facility] - Endocrinology - [place] [address] [place] [address] Clari Rubio MD #[address] [phone] 07/25/2024 10:00 AM CDT Office Visit [facility] Medical [facility] - Gastroenterology - [place] [address] [place] [address] Sandhya Gonzalez APRN, HARDWARE INSTALLER [address] [place] [address] documented as of this encounter Visit Diagnoses Not on filedocumented in this encounter Care Teams Drill Punch Operator Relationship Specialty Start Date End Date Albert Beauchamp MD [address] [place], [place] [id number] PCP - General Internal Medicine 06/07/15 Jamie Ochoa DO [address] [place] [address] Gastroenterology 07/20/15 Rosa Arreguin PAC [address] [place] [address] Physician Pipe Bender Physician Pipe Bender 07/11/21 Sandhya Gonzalez APRN, HARDWARE INSTALLER [address] [place] [address] Nurse Practitioner Advanced Practice Nurse 01/30/23 Justyn Barrera MD #2 [place] [address] Consulting Physician Gastroenterology 05/25/22 Clari Rubio MD #[address] [address] Consulting Physician Endocrinology 05/21/23 documented as of this encounter
--- OUTSIDE RECORDS SUMMARY | 2024-04-18 18:28 | XMS_ITS | Encounter Summary ---
Author Organization [facility] Address [address] [place] [address] Phone Care Team Providers Care Japanese Professor Name Role Phone Albert Beauchamp MD Primary Care Provider [phone] Jamie Ochoa DO Unavailable [phone] Rosa Arreguin Nettie PAC Unavailable [phone] Sandhya Gonzalez APRN, BUCKLE STRAP DRUM OPERATOR Unavailable Justyn Barrera MD Unavailable [phone] Clari Rubio MD Unavailable Reason for Visit * Reason Comments Medication Refill Encounter Details Date Type Department Care Team (Late st Contact Info) Description 02/04/2024 Refill [facility] - Gastroenterology - [place] [address] [place] [address] Sandhya Gonzalez APRN, BUCKLE STRAP DRUM OPERATOR [address] [place] [address] Medication Refill Social History Tobacco Use Types [...] Telephone Encounter - Kendy Servin RN - 02/04/2024 1:21 PM SOLUTION SALES SENIOR EXECUTIVE Medication refilled and signed per [facility] chronic medication standing order for pediatric and adult patients. TION SALES SENIOR EXECUTIVE documented in this encounter Plan of Treatment Upcoming Encounters Date Type Department Care Team (Late st Contact Info) Description 06/30/2024 10:00 AM CDT Office Visit [facility] Medical Group - Endocrinology - [place] [address] [place] [address] Clari Rubio MD #[address] [address] 07/25/2024 10:00 AM CDT Office Visit [facility] Medical [facility] - Gastroenterology [facility] #[address] [place] [address] Sandhya Gonzalez APRN, BUCKLE STRAP DRUM OPERATOR [address] [place] [address] documented as of this encounter Visit Diagnoses Not on filedocumented in this encounter Care Teams Japanese Professor Relationship Specialty Start Date End Date Albert Beauchamp MD [address] [place], [place] [id number] PCP - General Internal Medicine 06/07/15 Jamie Ochoa DO [address] [place] [address] Gastroenterology 07/20/15 Rosa Arreguin PAC [address] [place] [address] Physician Framing And Hanging Physician Framing And Hanging 07/11/21 Sandhya Gonzalez APRN, BUCKLE STRAP DRUM OPERATOR [address] [place] [address] Nurse Practitioner Advanced Practice Nurse 01/30/23 Justyn Barrera MD [address] [place] [address] Consulting Physician Gastroenterology 05/25/22 Clari Rubio MD #[address] [address] Consulting Physician Endocrinology 05/21/23 documented as of this encounter
--- OUTSIDE RECORDS SUMMARY | 2024-04-18 18:28 | XMS_ITS | Encounter Summary ---
Author Organization [facility] Address [address] [place] [address] Phone Care Team Providers Care Publishing Specialist Name Role Phone Albert Beauchamp MD Primary Care Provider [phone] Jamie Ochoa DO Unavailable [phone] Rosa Arreguin Nettie PAC Unavailable [phone] Sandhya Gonzalez APRN, BUS PERSON DISHWASHER Unavailable Justyn Barrera MD Unavailable [phone] Clari Rubio MD Unavailable Reason for Visit * Reason Comments Medication Refill Encounter Details Date Type Department Care Team (Late st Contact Info) Description 07/16/2022 Refill [facility] - Gastroenterology - [place] [address] [place] [address] Sandhya Gonzalez APRN, BUS PERSON DISHWASHER [address] [place] [address] Medication Refill Social History Tobacco Use Types [...] Telephone Encounter - Kendy Servin RN - 07/17/2022 10:08 AM CDT Medication refilled and signed [place] [facility] [place] medication standing order for pediatric and adult patients. documented in this encounter Plan of Treatment Upcoming Encounters Date Type Department Care Team (Late st Contact Info) Description 06/30/2024 10:00 AM CDT Office Visit [facility] Medical Group - Endocrinology - [place] [address] [place] [address] Clari Rubio MD #[address] [address] 07/25/2024 10:00 AM CDT Office Visit [facility] Medical [facility] - Gastroenterology - [place] [address] [place] [address] Sandhya Gonzalez APRN, BUS PERSON DISHWASHER [address] [place] [address] documented as of this encounter Visit Diagnoses Not on filedocumented in this encounter Care Teams Publishing Specialist Relationship Specialty Start Date End Date Albert Beauchamp MD [address] [place], [place] [phone] PCP - General Internal Medicine 06/07/15 Jamie Ochoa DO [address] [place] [address] Gastroenterology 07/20/15 Rosa Arreguin PAC [address] [place] [address] Physician Orthotist Or Prosthetist Physician Orthotist Or Prosthetist 07/11/21 Sandhya Gonzalez APRN, BUS PERSON DISHWASHER [address] [place] [address] Nurse Practitioner Advanced Practice Nurse 01/30/23 Justyn Barrera MD [address] [place] [address] Consulting Physician Gastroenterology 05/25/22 Clari Rubio MD #[address] [address] Consulting Physician Endocrinology 05/21/23 documented as of this encounter
--- OUTSIDE RECORDS SUMMARY | 2024-04-18 18:28 | XMS_ITS | Encounter Summary ---
Author Organization [facility] Address [address] [place] [address] Phone Care Team Providers Care Internet Systems Administrator Name Role Phone Albert Beauchamp MD Primary Care Provider [phone] Jamie Ochoa DO Unavailable [phone] Rosa Arreguin PAC Unavailable Sandhya Gonzalez APRN, PE TEACHER Unavailable Justyn Barrera MD Unavailable [phone] Clari Rubio MD Unavailable Reason for Visit * Reason Comments Medication Refill Encounter Details Date Type Department Care Team (Late st Contact Info) Description 12/27/2020 Refill [facility] - Gastroenterology - [place] [address]2 [place] [address] Rosa Arreguin, PAC [address] [place] [address] Medication Refill Social History Tobacco Use Types [...] Telephone Encounter - Kendy Servin RN - 12/27/2020 1:59 PM CDT Medication [facility]illed and signed [facility] [place] standing order for pediatric and adult patients. documented in this encounter Plan of Treatment Upcoming Encounters Date Type Department Care Team (Late st Contact Info) Description 06/30/2024 10:00 AM CDT Office Visit [facility] Medical Group - Endocrinology - [place] [address] [place] [address] Clari Rubio MD #[address] [address] 07/25/2024 10:00 AM CDT Office Visit 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 documented as of this encounter Care Teams Internet Systems Administrator Relationship Specialty Start Date End Date Suthan, Nanthini, MD [address] [place] [address] PCP - General Internal Medicine 06/07/15 Jamie Ochoa DO [address] [place] [address] Gastroenterology 07/20/15 Rosa Arreguin Nettie, [facility] [address] [place] [address] Physician Equalizer Operator Physician Equalizer Operator 07/11/21 Sandhya Gonzalez APRN, PE TEACHER [address] [place] [address] Nurse Practitioner Advanced Practice Nurse 01/30/23 Justyn Barrera MD #[address] [place] [address] Consulting Physician Gastroenterology 05/25/22 Clari Rubio MD #[address] [phone] Consulting Physician Endocrinology 05/21/23 documented as of this encounter
--- OUTSIDE RECORDS SUMMARY | 2024-04-18 18:28 | XMS_ITS | Encounter Summary ---
Author Organization [facility] Address [address] [place] [address] Phone Care Team Providers Care Household Coordinator Name Role Phone Albert Beauchamp MD Primary Care Provider [phone] Steven Desai MD Unavailable [phone] Encounter Details Date Type Department Care Team (Late st Contact Info) Description 09/07/2020 Orders Only [facility] Scanning, Provider Social History Tobacco Use Types Packs/Day Years Used Date Smoking Tobacco: Never Smokeless Tobacco: Never Alcohol Use Standard Drinks/Week Comments Yes 0 (1 standard drink = 0.6 oz pur e alcohol) rare Comments No Sex and Gender Information Value Date Recorded Sex Assigned at Not on file 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 Gender Identity Not on file Sexual Orientation Not on file documented as of this encounter Plan of Treatment Not on file documented as of this encounter Procedures Procedure Name Priority Date/Time Associated Diagnosis Comments SCAN - LABS 09/07/2020 4:57 PM CDT SCAN - LABS 09/07/2020 documented in this encounter Results * SCAN - LABS (09/07/2020 4:57 PM CDT) us Provider Scanning Final Result * SCAN - LABS (09/07/2020) us Provider Scanning Final Result documented in this encounter Visit Diagnoses Not on filedocumented in this encounter Additional Health Concerns Infection Onset Date Last Indicated Resolved Time COVID: Suspected 06/20/2021 06/20/2021 06/20/2021 12:11 PM CDT COVID: Suspected 08/18/2022 08/18/2022 08/18/2022 5:03 PM CDT documented as of this encounter Care Teams Household Coordinator Relationship Specialty Start Date End Date Albert Beauchamp MD [address] [place] [address] PCP - General 06/28/16 Steven Desai MD [address] [place] [address] Referring Physician Neuromuscular Medicine 03/05/19 documented as of this encounter
--- OUTSIDE RECORDS SUMMARY | 2024-04-18 18:28 | XMS_ITS | Referral Summary ---
Author Organization [facility] Healthcare Address [address] [place] [address] Care Team Providers Care Salesforce Business Analyst Name Role Phone Albert Beauchamp MD Primary Care Provider [phone] Steven Desai MD Unavailable [phone] Allergies Active Allergy Reactions Criticality Noted Date Comments Codeine Fatigue Low Codeine Sulfate Unknown 05/08/2022 OVERLY SEDATED Heparin Other (See comments) High position and jerked Penicillins Swollen tongue High Medications alendronate (FOSAMAX) 70 mg tabletIndicatio ns:on Sunday Take 1 tablet (70 mg total) by mouth every 7 days Take in the morning with a full glass of water, on an empty stomach, and do not take anything else by mouth or lie down for the next 30 min. Takes on Sundays Active traMADol (ULTRAM) 50 mg tabletIndicatio ns:Pain Take 1 tablet (50 mg total) by mouth as needed for pain Active escitalopram (LEXAPRO) 5 mg tabletIndicatio ns:Anxiety with Depression Take 1 tablet (5 mg total) by mouth daily with lunch Active latanoprost (XALATAN) 0.005 % ophthalmic solutionIndicat ions:open angle glaucoma Administer 1 drop into both eyes nightly Active cholecalciferol (VITAMIN D-3) 1,000 unit tabletIndicatio ns:Vitamin D Deficiency Take 1 tablet (1,000 Units total) by mouth daily with lunch Active timolol (BETIMOL) 0.5 % ophthalmic solutionIndicat ions:open angle glaucoma Three times a day, right eye. Two times a day, left eye 07/10/19 19 Active dorzolamide (TRUSOPT) 2 % ophthalmic solutionIndicat ions:open angle glaucoma Three times a day, right eye. Two times a day, left eye 07/10/19 19 Active brimonidine (ALPHAGAN) 0.2 % ophthalmic solutionIndicat ions:open angle glaucoma Administer 1 drop into the right eye 3 (three) times a day 07/10/19 19 Active famotidine (PEPCID) 20 mg tabletIndicatio ns:gastroesopha geal reflux disease Take 1 tablet (20 mg total) by mouth 2 (two) times a day Active cholestyramine (QUESTRAN) 4 gram packet Take 1 packet by mouth 2 (two) times a day with meals 10/10/19 22 Active apixaban (ELIQUIS) 5 mg tabletIndicatio ns:atrial fibrillation Take 1 tablet (5 mg total) by mouth every 12 (twelve) hours 60 tablet 10/10/19 22 Active omeprazole (PriLOSEC) 40 mg capsule Take 1 capsule (40 mg total) by mouth every morning Active furosemide (LASIX) 20 mg tablet Take 1 tablet (20 mg total) by mouth daily for 2 days 2 tablet 08/19/19 23 Active Additional Information Patient not taking.Reported on 01/16/2024 timolol (TIMOPTIC) 0.5 % ophthalmic solution Administer 1 drop into both eyes 2 (two) times a day 10/20/19 23 Active GaviLyte-G 236-22.74-6.74 -5.86 gram solution 01/31/20 23 Active ibuprofen 200 mg tab/capIndicati ons:Pain Take 2 tablet/capsule (400 mg total) by mouth every 6 (six) hours as needed for pain Active pyRIDostigmine (MESTINON) 60 mg tabletIndicatio ns:Myasthenia Gravis TAKE 1.5 TABLETS (90 MG TOTAL) BY MOUTH DAILY WITH BREAKFAST AND 1 TABLET (60 MG TOTAL) WITH LUNCH AND 1.5 TABLETS (90 MG TOTAL) DAILY WITH DINNER. 360 tablet 3 10/16/19 24 Active pyRIDostigmine ER (MESTINON) 180 mg CR tabletIndicatio ns:Myasthenia gravis (HCC) TAKE 1 TABLET BY MOUTH EVERY NIGHT AT BEDTIME 30 tablet 10 10/16/19 24 Active Additional Information Patient not taking.Reported on 01/16/2024 amLODIPine (NORVASC) 5 mg tabletIndicatio ns:hypertension Take 1 tablet (5 mg total) by mouth nightly In PM 90 tablet 3 12/05/19 24 Active predniSONE (DELTASONE) 20 mg tabletIndicatio ns:Myasthenia gravis (HCC) TAKE 1 TABLET (20 MG) BY MOUTH EVERY OTHER DAY 45 tablet 3 01/08/20 24 025 Active amiodarone (PACERONE) 200 mg tablet Take 1 tablet (200 mg total) by mouth daily 12/05/19 24 Active atorvastatin (LIPITOR) 10 mg tablet Take 1 tablet (10 mg total) by mouth daily 08/13/19 24 Active metoprolol tartrate (LOPRESSOR) 50 mg immediate release tablet TAKE 1 TABLET (50 MG TOTAL) BY MOUTH TWO (2) (TWO) TIMES a DAY 180 tablet 3 01/21/20 24 Active mycophenolate mofetil (CELLCEPT) 500 mg tabletIndicatio ns:Myasthenia gravis status post thymectomy (HCC) TAKE TWO (2) TABLETS (1,000 MG TOTAL) BY MOUTH TWO (2) (TWO) TIMES a DAY 360 tablet 3 03/03/20 24 Active losartan (COZAAR) 100 mg tablet TAKE 1 TABLET (100 MG TOTAL) BY MOUTH DAILY 90 tablet 3 04/10/19 25 026 Active losartan (COZAAR) 100 mg tablet Take 1 tablet (100 mg total) by mouth daily 90 tablet 3 01/12/20 23 025 Discontinued Active Problems Problem Noted Date Diagnosed Date Dysphagia 01/30/2023 Esophageal motility disorder 01/30/2023 History of colon polyps 01/30/2023 Pharyngoesophageal dysphagia 01/30/2023 Myasthenia gravis 01/02/2022 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 Atrial fibrillation with rap id ventricular response (CMS/HCC) 10/07/2021 Vitreous prolapse of right eye 06/24/2018 Overview (06/24/2018): Added automatically from request for surgery [id number] Secondary open-angle glaucoma of right eye, yoana re stage 06/21/2018 Vitreous prolapse, right eye 06/21/2018 Early dry stage nonexudative age-related macular degeneration of both eyes 06/21/2018 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 Monthly or less 03/22/2023 Q2: How many drinks containi ng alcohol do you have on a typical day when you are drinking? 1 or 2 03/22/2023 Q3: How often do you have si x or more drinks on one occasion? Less than monthly 03/22/2023 Personal Safety Answer Date Recorded Have you ever been in or are you currently in a harmful physical or emotional relationship or is someone making you feel afraid or unsafe? Denies 03/22/2023 Comments No Sex and Gender Information Value Date Recorded Sex Assigned at Not on file Legal Sex Female 6:39 PM CRITICAL CARE UNIT NURSE Gender Identity Not on file Sexual Orientation Not on file Last Filed Vital Signs Vital Sign Reading Time Taken Comments Blood Pressure 129/79 01/16/2024 9:15 AM CRITICAL CARE UNIT NURSE Pulse 70 01/16/2024 9:15 AM CRITICAL CARE UNIT NURSE Temperature 36.3 C (97.3 F) 03/22/2023 11:30 AM CRITICAL CARE UNIT NURSE Respiratory Rate 22 03/22/2023 12:00 PM CRITICAL CARE UNIT NURSE Oxygen Saturation 95% 03/22/2023 11:55 AM CRITICAL CARE UNIT NURSE Inhaled Oxygen Concentration - - Weight 54.4 kg (120 lb) 01/16/2024 9:15 AM CRITICAL CARE UNIT NURSE Height 154.9 cm (5' 1 ) 01/16/2024 9:15 AM CRITICAL CARE UNIT NURSE Body Mass Index 22.67 01/16/2024 9:15 AM CRITICAL CARE UNIT NURSE Plan of Treatment Not on file Procedures Procedure Name Priority Date/Time Associated Diagnosis Comments EGFR Routine 01/16/2024 12:26 PM CRITICAL CARE UNIT NURSE Myasthenia gravis (HCC) HEMOGLOBIN A1C Routine 01/16/2024 12:26 PM CRITICAL CARE UNIT NURSE Myasthenia gravis (HCC) 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 73 m2 Comment: Interpretive Data Reference Interval Normal >/= 90 mL/min/1.73m2 Mildly decreased* 60 - 89 mL/min/1.73m2 Mildly to moderately decreased 45 - 59 mL/min/1.73m2 Moderately to severely decreased 30 - 44 mL/min/1.73m2 Severely decreased 15 - 29 mL/min/1.73m2 Kidney Failure < 15 mL/min/1.73m2 *Relative to young adult level Estimated glomerular filtration rate is determined by the 2020 CKD-EPI equation recommended by the National Kidney Foundation (A Unifying Approach to GFR Estimation: Recommendations of the NKF-ASK Task Force on Reassessing the Inclusion of Race in Diagnosing Kidney Disease, JASN 2020). The CKD-EPI equation should not be used for patients with unstable renal function and has not been validated in children and those over 70. Current interpretive data was last reviewed 2021. Testing performed by: [facility], [address] [place] [address], [place]., [address] Blood 01/16/2024 12:2 6 PM CRITICAL CARE UNIT NURSE 01/16/2024 5:43 PM CRITICAL CARE UNIT NURSE us Steven Desai MD LAB BLOOD ORDERABLES Thelma kim Result LYUDMILA WHALEN FLAT TOP) 1 [facility] Department [place] [address] * (ABNORMAL) Hemoglobin A1c (01/16/2024 12:26 PM CRITICAL CARE UNIT NURSE) Hgb A1C 6.0(H) 4.0 - 5.6 % Comment:Testing performed by : [facility], [address] [place] [address]., [address] Estimated Average Glucose 126 mg/dL LYUDMILA WHALEN (FLAT [place]) Comment: The ADA recommends reporting an estimated Average Glucose (eAG) with all Hemoglobin A1c results using the equation derived from a study of 507 normal and diabetic adults. Minority populations were underrepresented and children were not included. (Diabetes Care 31:0656-7239, 2008). The eAG is not equivalent to a fasting glucose. Testing performed by: [facility], [address] [place] [address], [address] Blood 01/16/2024 12:2 6 PM CRITICAL CARE UNIT NURSE 01/16/2024 5:23 PM CRITICAL CARE UNIT NURSE us Steven Desai MD LAB BLOOD ORDERABLES Thelma kim Result MICHELLEALMA WHALEN (FLAT TOP) 1 [facility] [place] [address] * COLONOSCOPY (03/22/2023 11:15 AM CRITICAL CARE UNIT NURSE) Anatomical Region Laterality Modality Other Narrative Procedure Note Job Brewster MD - 03/22/2023 11:15 AM CST ENDOSCOPY LAB Patient Name: Genna Calhoun Procedure Date: 03/22/2023 11:15 AM Date of : 1945 Admit Type: Outpatient Age: 77 Gender: Female Attending MD: Ananth Brewster M.D. Room: [facility] ENDOSCOPY ROOM 03 Note Status: Finalized Procedure: Colonoscopy Indications: surveillance: Personal history of colonic polyps,Last colonoscopy 5 years ago Providers: Ananth Brewster M.D. Referring MD: Albert Beauchamp M.D. Medicines: Monitored Anesthesia Care Complications: No immediate complications. Estimated Blood Loss: Estimated blood loss: none. Procedure: Pre-Anesthesia Assessment: - Immediately prior to administration ofmedications, the patient was re-assessed for adequacy to receive sedatives. The benefits, risks and alternatives of theprocedure and sedation were discussed and informed consentwas obtained. All questions were answered. Please referto the signed informed consent document in the medical record. The scope was passed under direct vision.The [id number] was introduced through the anusand advanced to the cecum, identified by appendiceal orifice and ileocecal valve. The colonoscopy was performed without difficulty. The patient tolerated the procedure well. The quality of the bowel preparation was good. The quality of the bowel preparation was evaluated using the BBPS (BostonBowel Preparation Scale) with scores of: Right Colon = 3, Transverse Colon = 3 and Left Colon = 3 (entiremucosa seen well with no residual staining, smallfragments of stool or opaque liquid). The total BBPS score equals 9. Bowel prep was administered using a split dose. Findings: Many small-mouthed diverticula were found in the sigmoid colon. Non-bleeding internal hemorrhoids were found during retroflexion. The hemorrhoids were small. The exam was otherwise without abnormality. Impression: - Diverticulosis in the sigmoid colon. - Non-bleeding internal hemorrhoids. - The examination was otherwise normal. - No specimens collected. Recommendation: - Repeat colonoscopy is not recommended for surveillance given age in 5 years will be over 80,and no polyps at this time. Electronically signed by Ananth Brewster MD Ananth Brewster M.D. 03/22/2023 11:33:03 AM Number of Addenda: 0 Note Initiated On: 03/22/2023 11:15 AM us Job Brewster MD ENDOSCOPY PROCEDURES Final Result * (ABNORMAL) Lipid panel (10/07/2021 10:56 PM CDT) Cholesterol 220(H) 30 - 199 mg/dL LYUDMILA WHALEN (JULIA) Comment: Interpretive Data Ages < or = 19 years Acceptable: <170 mg/dL Borderline high: 170-199 mg/dL High: >or= 200 mg/dL Ages > or = 20 years Desirable: <200 mg/dL Borderline high: 200-239 mg/dL High: >or= 240 mg/dL Literature References: 1. Expert Panel on Integrated Guidelines for Cardiovascular Health and Risk Reduction in Children and Adolescents. Pediatrics 2011;128:S213 2. NCEP Expert Panel. Circulation 2004;110:227 Current Interpretive Data was last revised on 2017. Triglycerides 201(H) <=149 mg/dL LYUDMILA WHALEN (JULIA) Comment: Interpretive Data Ages < or = 9 years Acceptable: <75 mg/dL Borderline high: 75-99 mg/dL High: >or= 100 mg/dL Ages 10 to 20 years Acceptable: <90 mg/dL Borderline high: 90-129 mg/dL High: >or= 130 mg/dL Ages > or = 20 years Desirable: <150 mg/dL Borderline high: 150-199 mg/dL High: 200-499 mg/dL Very high: >or= 499 mg/dL Literature References: 1. Expert Panel on Integrated Guidelines for Cardiovascular Health and Risk Reduction in Children and Adolescents. Pediatrics 2011;128:S213 2. NCEP Expert Panel. Circulation 2004;110:227 Current Interpretive Data was last revised on 2017. HDL 83 >=40 mg/dL LYUDMILA WHALEN (JULIA) Comment: Interpretive Data Ages < or = 19 years Acceptable: >45 mg/dL Borderline low: 40-45 mg/dL Low: <40 mg/dL Ages > or = 20 years Desirable: >or= 60 mg/dL Low: <40 mg/dL Literature References: 1. Expert Panel on Integrated Guidelines for Cardiovascular Health and Risk Reduction in Children and Adolescents. Pediatrics 2011;128:S213 2. NCEP Expert Panel. Circulation 2004;110:227 Current Interpretive Data was last revised on 2017. LDL, calculated 97 <=129 mg/dL LYUDMILA WHALEN (JULIA) Comment: Interpretive Data Ages < or = 19 years Acceptable: <110 mg/dL Borderline high: 110-129 mg/dL High: >or= 130 mg/dL Ages > or = 20 years Optimal: <100 mg/dL Near optimal: 100-129 mg/dL Borderline high: 130-159 mg/dL High: >160 mg/dL Literature References: 1. Expert Panel on Integrated Guidelines for Cardiovascular Health and Risk Reduction in Children and Adolescents. Pediatrics 2011;128:S213 2. NCEP Expert Panel. Circulation 2004;110:227 Current Interpretive Data was last revised on 2017. Non-HDL Cholesterol 137 mg/dL LYUDMILA WHALEN (JULIA) Comment: Interpretive Data Ages < or = 19 years Acceptable: <120 mg/dL Borderline high: 120-144 mg/dL High: >145 mg/dL Ages > or = 20 years When triglycerides are >200 mg/dL, Non-HDL cholesterol is a secondary target of therapy with treatment goals that are 30 mg/dL greater than the LDL cholesterol target. Literature References: 1. Expert Panel on Integrated Guidelines for Cardiovascular Health and Risk Reduction in Children and Adolescents. Pediatrics 2011;128:S213 2. NCEP Expert Panel. Circulation 2004;110:227 Current Interpretive Data was last revised on 2017. Chol/HDL ratio 3 FIORDALIZA WHALEN (JULIA) Blood 10/07/2021 10:5 6 PM CDT 10/07/2021 11:03 PM CDT Narrative LYUDMILA WHALEN (JULIA) - 10/08/2021 12:28 AM CDT This lipid panel was automatically ordered due to a significant change in Troponin. The dietary status of the patient at the collection time should be correlated with the lipid results. us Steven Fairchild MD LAB BLOOD ORDERABLES Final Result LYUDMILA WHALEN FLAT TOP) 1 [facility] Department of Laboratories [place], [place] [id number] * DIGITAL MAMMOGRAPHY (06/24/2012 9:47 AM CDT) Anatomical Region Laterality Modality Breast Mammography 06/24/2012 9:4 7 AM CDT Narrative 06/25/2012 10:58 AM CDT Performed by: dr Ravi Mamm Bi Acc#: [id number] DATE OF EXAM: Jun 24 2012 CLINICAL HISTORY: Routine screening. RESULT: Superior-inferior and lateral oblique views of each breast were obtained using the low dose technique. There is a mild to moderate amount of fibroglandular tissue. Several benign calcifications are present on the right. No skin thickening was seen. No neoplasm was identified. A tiny mass might be obscured in an area of fibrosis but none was suggested. Digital technology was employed plus computer-aided detection software (R2) was utilized in interpretation of these images. This facility utilizes a reminder system to notify patients of yearly mammograms. IMPRESSION: UNCHANGED APPEARANCE OF MAMMOGRAM FROM 05/17/11 WITH NO NEOPLASM SEEN. BI-RADS CATEGORY 2 - BENIGN Interpreting Physician: DEVORA NAZARIO M.D. Read on: Jun 24 2012 2:40P Transcribed by: lindsey On: Jun 24 2012 2:40P Approved Electronically by: DEVORA NAZARIO M.D. on: Jun 25 2012 10:58A Ordering DR: DR ERI SHINE Attending : ERI SHINE Procedure Note Provider, MD Charla - 06/25/2016 Performed by: dr Ravi Mamm Bi Acc#: [id number] DATE OF EXAM: Jun 24 2012 CLINICAL HISTORY: Routine screening. RESULT: Superior-inferior and lateral oblique views of each breast were obtainedusing the low dose technique. There is a mild to moderate amount offibroglandular tissue. Several benign calcifications are present on theright. No skin thickening was seen. No neoplasm was identified. A tinymass might be obscured in an area of fibrosis but none was suggested.Digital technology was employed plus computer-aided detection software(R2) was utilized in interpretation of these images. This facilityutilizes a reminder system to notify patients of yearly mammograms. IMPRESSION: UNCHANGED APPEARANCE OF MAMMOGRAM FROM 05/17/11 WITH NO NEOPLASM SEEN.BI-RADS CATEGORY 2 - BENIGN Interpreting Physician: DEVORA NAZARIO M.D. Read on: Jun 24 20122:40P Transcribed by: lindsey On: Jun 24 2012 2:40P Approved Electronically by: DEVORA NAZARIO M.D. on: Jun 25 201210:58A Ordering DR: DR ERI SHINE Attending DR: ERI SHINE Historical Provider MD QUINN MAMMO PROCEDURES Thelma l Result from Last 3 Months or Most Recently Relevant to Health Maintenance Insurance MEDICARE IDPA IDPA MEDICARE MEDICARE [facility] Advance Directives For more information, please contact: [phone] * Full Code (Latest Code Status on File) Date Activated Date Inactivated Comments 03/22/2023 10:11 AM 03/22/2023 5:08 PM * Full Code Date Activated Date Inactivated Comments 10/08/2021 7:44 AM 10/09/2021 3:08 PM Care Teams Salesforce Business Analyst Relationship Specialty Start Date End Date Albert Beauchamp MD [address] [place] [address] PCP - General 06/28/16 Steven Desai MD [address] [facility] [address] [place] [address] Referring Physician Neuromuscular Medicine 03/05/19
--- OUTSIDE RECORDS SUMMARY | 2024-04-18 18:28 | XMS_ITS | Encounter Summary ---
Author Organization [facility] Address [address] [place] [address] Phone Care Team Providers Care Sql Tech Name Role Phone Albert Beauchamp MD Primary Care Provider Jamie Ochoa DO Unavailable [phone] Rosa Arreguin PAC Unavailable Sandhya Gonzalez APRN, CHIEF CONSOLE OPERATOR Unavailable Justyn Barrera MD Unavailable [phone] Clari Rubio MD Unavailable Reason for Visit * Reason Comments Medication Refill Encounter Details Date Type Department Care Team (Late st Contact Info) Description 06/27/2021 Refill [facility] - Gastroenterology - [place] [address] [place] [id number] Rosa Arreguin, PAC [address] [place] [address] Medication Refill Social History Tobacco Use Types [...] Telephone Encounter - Kendy Servin RN - 06/27/2021 8:59 AM CDT Patient requesting refill too soon. Medication refused. documented in this encounter Plan of Treatment Upcoming Encounters Date Type Department Care Team (Late st Contact Info) Description 06/30/2024 10:00 AM CDT Office Visit [facility] - Endocrinology - [place] [address] [place] [address] Clari Rubio MD [address] [address] 07/25/2024 10:00 AM CDT Office Visit [facility] Medical [facility] - Gastroenterology - [place] [address] [place] [address] Sandhya Gonzalez APRN, CHIEF CONSOLE OPERATOR [address] [place] [address] documented as of this encounter Visit Diagnoses Not on filedocumented in this encounter Additional Health Concerns Infection Onset Date Last Indicated Resolved Time COVID - 19 Confirmed 01/16/2022 01/16/2022 022 12:16 AM DREDGE LEVER OPERATOR documented as of this encounter Care Teams Sql Tech Relationship Specialty Start Date End Date Albert Beauchamp MD [address] [place], [place] [id number] PCP - General Internal Medicine 06/07/15 Jamie Ochoa DO [address] [place] [address] Gastroenterology 07/20/15 Rosa Arreguin PAC [address] [place] [address] Physician Rn Neurosurgical Physician Rn Neurosurgical 07/11/21 Sandhya Gonzalez APRN, CHIEF CONSOLE OPERATOR [address] [place] [address] Nurse Practitioner Advanced Practice Nurse 01/30/23 Justyn Barrera MD [address] [place] [address] Consulting Physician Gastroenterology 05/25/22 Clari Rubio MD [address] [phone] Consulting Physician Endocrinology 05/21/23 documented as of this encounter
--- OUTSIDE RECORDS SUMMARY | 2024-04-18 18:28 | XMS_ITS | Encounter Summary ---
Author Organization [facility] Address [address] [place] [address] Phone Care Team Providers Care Data Reduction Technician Name Role Phone Albert Beauchamp MD Primary Care Provider [phone] Jamie Ochoa DO Unavailable [phone] Rosa Arreguin PAC Unavailable Sandhya Gonzalez APRN, AQUARIUM TANK ATTENDANT Unavailable Justyn Barrera MD Unavailable [phone] Clari Rubio MD Unavailable Reason for Visit * Reason Comments Medication Refill Encounter Details Date Type Department Care Team (Late st Contact Info) Description 06/13/2021 Refill [facility] - Gastroenterology - [place] [address] [place] [phone] Rosa Arreguin, PAC [address] [place] [address] Medication Refill Social History Tobacco Use Types [...] Telephone Encounter - Kendy Servin RN - 06/15/2021 8:37 AM CDT Patient requesting refill too soon. Medication refused. documented in this encounter Plan of Treatment Upcoming Encounters Date Type Department Care Team (Late st Contact Info) Description 06/30/2024 10:00 AM CDT Office Visit [facility] - Endocrinology - [place] [address] [place] [address] Clari Rubio MD [address] [address] 07/25/2024 10:00 AM CDT Office Visit [facility] Medical [facility] - Gastroenterology - [place] [address] [place] [address] Sandhya Gonzalez APRN, AQUARIUM TANK ATTENDANT [address] [place] [address] documented as of this encounter Visit Diagnoses Not on filedocumented in this encounter Additional Health Concerns Infection Onset Date Last Indicated Resolved Time COVID - 19 Confirmed 01/16/2022 01/16/2022 022 12:16 AM DECKHAND ENGINEER documented as of this encounter Care Teams Data Reduction Technician Relationship Specialty Start Date End Date Albert Beauchamp MD [address] [place], [place] [phone] PCP - General Internal Medicine 06/07/15 Jamie Ochoa DO [address] [place] [address] Gastroenterology 07/20/15 Rosa Arreguin PAC [address] [place] [address] Physician Ore Puncher Physician Ore Puncher 07/11/21 Sandhya Gonzalez APRN, AQUARIUM TANK ATTENDANT [address] [place] [address] Nurse Practitioner Advanced Practice Nurse 01/30/23 Jutsyn Barrera MD [address] [place] [address] Consulting Physician Gastroenterology 05/25/22 Clari Rubio MD #[address] [phone] Consulting Physician Endocrinology 05/21/23 documented as of this encounter
--- OUTSIDE RECORDS SUMMARY | 2024-04-18 18:28 | XMS_ITS | Encounter Summary ---
Author Organization [facility] Address [address] [place] [address] Phone Care Team Providers Care Silverer Name Role Phone Albert Beauchamp MD Primary Care Provider Jamie Ochoa DO Unavailable [phone] Rosa Arreguin Nettie PAC Unavailable [phone] Sandhya Gonzalez APRN, RESIDENTIAL CASE MANAGER Unavailable Justyn Barrera MD Unavailable [phone] Clari Rubio MD Unavailable Reason for Visit * Reason Comments Medication Refill Encounter Details Date Type Department Care Team (Late st Contact Info) Description 10/04/2022 Refill [facility] - Gastroenterology - [place] #2 [place] [address] Sandhya Gonzalez APRN, RESIDENTIAL CASE MANAGER [address] [place] [address] Medication Refill Social History Tobacco Use Types [...] Telephone Encounter - Kendy Servin RN - 10/05/2022 9:00 AM CDT Medication refilled and signed per [facility] medication standing order for pediatric and adult patients. documented in this encounter Plan of Treatment Upcoming Encounters Date Type Department Care Team (Late st Contact Info) Description 06/30/2024 10:00 AM CDT Office Visit [facility] - Endocrinology - [place] #2 [place] [address] Clari Rubio MD #[address] [phone] 07/25/2024 10:00 AM CDT Office Visit [facility] - Gastroenterology - [place] [address]2 [place] [address] Sandhya Gonzalez APRN, RESIDENTIAL CASE MANAGER [address]2 [place] [address] documented as of this encounter Visit Diagnoses Not on filedocumented in this encounter Care Teams Silverer Relationship Specialty Start Date End Date Albert Beauchamp MD [address] [place], [place] [id number] PCP - General Internal Medicine 06/07/15 Jamie Ochoa DO [address] [place] [address] Gastroenterology 07/20/15 Rosa Arreguin PAC [address]2 [place] [address] Physician Meatcutter Physician Meatcutter 07/11/21 Sandhya Gonzalez APRN, RESIDENTIAL CASE MANAGER [address] [place] [address] Nurse Practitioner Advanced Practice Nurse 01/30/23 Justyn Barrera MD #2 [place] [address] Consulting Physician Gastroenterology 05/25/22 Clari Rubio MD #[address] [address] Consulting Physician Endocrinology 05/21/23 documented as of this encounter
--- OUTSIDE RECORDS SUMMARY | 2024-04-18 18:28 | XMS_ITS | Encounter Summary ---
Author Organization [facility] Address [address] [place] [address] Phone Care Team Providers Care Chemical Operations Specialist Name Role Phone Albert Beauchamp MD Primary Care Provider Jamie Ochoa DO Unavailable [phone] Rosa Arreguin Nettie PAC Unavailable [phone] Sandhya Gonzaelz APRN, MANAGER BANK Unavailable Justyn Barrera MD Unavailable [phone] Clari Rubio MD Unavailable Reason for Visit * Reason Comments Medication Refill Encounter Details Date Type Department Care Team (Late st Contact Info) Description 05/08/2023 Refill [facility] - Gastroenterology - [place] [address]2 [place] [address] Sandhya Gonzalez APRN, MANAGER BANK #2 [place] [address] Medication Refill Social History Tobacco Use Types [...] Telephone Encounter - Kendy Servin RN - 05/09/2023 9:26 AM SUBSEA ENGINEER Medication refilled and signed per [facility] chronic medication standing order for pediatric and adult patients. EA ENGINEER documented in this encounter Plan of Treatment Upcoming Encounters Date Type Department Care Team (Late st Contact Info) Description 06/30/2024 10:00 AM CDT Office Visit [facility] - Endocrinology - [place] [address] [place] [address] Clari Rubio MD #[address] [address] 07/25/2024 10:00 AM CDT Office Visit [facility] Medical [facility] - Gastroenterology [facility] #[address] [place] [address] Sandhya Gonzalez APRN, MANAGER BANK [address] [place] [address] documented as of this encounter Visit Diagnoses Not on filedocumented in this encounter Care Teams Chemical Operations Specialist Relationship Specialty Start Date End Date Albert Beauchamp MD [address] [place], [place] [id number] PCP - General Internal Medicine 06/07/15 Jamie Ochoa DO [address] [place] [address] Gastroenterology 07/20/15 Rosa Arreguin PAC [address] [place] [address] Physician Machine Maintenance Physician Machine Maintenance 07/11/21 Sandhya Gonzalez APRN, MANAGER BANK [address]2 [place] [address] Nurse Practitioner Advanced Practice Nurse 01/30/23 Justyn Barrera MD #2 [place] [address] Consulting Physician Gastroenterology 05/25/22 Clari Rubio MD #[address] [address] Consulting Physician Endocrinology 05/21/23 documented as of this encounter
--- OUTSIDE RECORDS SUMMARY | 2024-04-18 18:28 | XMS_ITS | Clinical Summary ---
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 Surgical History Surgery Date Site/Laterality Comments CATARACT EXTRACTION 1989's Bilateral IRIDOTOMY / IRIDECTOMY OTHER SURGICAL HISTORY 03/05/1964 - 03/04/1965 thymus surgery SKIN GRAFT 1949's right arm to left leg OTHER SURGICAL HISTORY 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 OTHER SURGICAL HISTORY Graft in right leg EYE SURGERY Bilateral laser surgery GLAUCOMA SURGERY 06/03/2018 Right THYMECTOMY age 18 TRACHEOSTOMY remote past x2 1964, TRACHEOSTOMY CLOSURE VITRECTOMY UPPER GASTROINTESTINAL ENDOSCOPY COLONOSCOPY KNEE SURGERY Right broken patella, metal in knee- 2022 Medical History Medical History Date Comments Glaucoma Cataract Hypertension GERD (gastroesophageal reflux disease) Type 2 diabetes mellitus (HCC) Myasthenia gravis (HCC) 1964 Colon polyp Dysphagia Chronic diarrhea Esophageal motility disorder Infectious viral hepatitis Anemia Atrial fibrillation (CMS/HCC) (HCC) History of transfusion Depression Cholelithiasis Family History Medical History Relation Name Comments No Known Problems Father Diabetes Maternal Grandmother Macular degeneration Mother Macular degeneration Mother's Sister Diabetes Paternal Grandmother Anesthesia problems Neg Hx Relation Name Status Comments Father Maternal Grandmother Mother Mother's Sister Paternal Grandmother Social History Tobacco Use Types Packs/Day Years [...] on file Legal Sex Female 6:39 PM BOTTLE BLOWING MACHINE TENDER Gender Identity Not on file Sexual Orientation Not on file Obstetrics History Last Filed Vital Signs Vital Sign Reading Time Taken Comments Blood Pressure 129/79 01/16/2024 9:15 AM BOTTLE BLOWING MACHINE TENDER Pulse 70 01/16/2024 9:15 AM BOTTLE BLOWING MACHINE TENDER Temperature 36.3 C (97.3 F) 03/22/2023 11:30 AM BOTTLE BLOWING MACHINE TENDER Respiratory Rate 22 03/22/2023 12:00 PM BOTTLE BLOWING MACHINE TENDER Oxygen Saturation 95% 03/22/2023 11:55 AM BOTTLE BLOWING MACHINE TENDER Inhaled Oxygen Concentration - - Weight 54.4 kg (120 lb) 01/16/2024 9:15 AM BOTTLE BLOWING MACHINE TENDER Height 154.9 cm (5' 1 ) 01/16/2024 9:15 AM BOTTLE BLOWING MACHINE TENDER Body Mass Index 22.67 01/16/2024 9:15 AM BOTTLE BLOWING MACHINE TENDER Plan of Treatment Health Maintenance Due Date Last Done Comments Albumin Creatinine Ratio, Urine 1945 Depression Screening 1945 Foot Exam 1945 Zoster Vaccine (1 of 2) 1965 Well Visit 65+ 10/27/2011 Pneumococcal vaccine 65+ (3 of 3 - PPSV23 or PCV20) 04/27/2015 03/02/2015, 03/05/1999 DTaP/Tdap/Td Vaccine (1 - Tdap) 08/05/2015 6 Dilated Eye Exam 07/20/2019 07/19/2018, 12/2018, 06/21/2018 Lipid Panel 10/07/2022 10/07/2021 Covid-19 Vaccine (4 - 2023-2 5 season) 2023 02/01/2021, 05/29/2020, 05/07/2020 Fall Risk Assessment 03/22/2024 03/22/2023 Hemoglobin A1C 07/15/2024 01/16/2024 eGFR 01/15/2025 01/16/2024, 1110/2022, 08/18/2022, Additional history exists Osteoporosis Screening-Bone Density Scan 08/22/2025 08/23/2023, 08/23/2023, 12/03/2020, Additional history exists Hepatitis C Screening Completed 11/16/2008, 009 Hepatitis B Screening Completed 09/07/2016 , 04/08/2016, 03/08/2016 Colon Cancer Screening-CT Colonography Discontinued 03/22/2023 Colon Cancer Screening-Colonoscopy Discontinued 03/22/2023 Colon Cancer Screening-DNA Stool Discontinued 03/22/19 Colon Cancer Screening-FIT Discontinued 03/22/2023 Colon Cancer Screening-FOBT Discontinued 03/22/2023 Colon Cancer Screening-Sigmoidoscopy Discontinued 03/22/2023 Colorectal Cancer Screening Discontinued Breast Cancer Screening-Mammogram Discontinued 08/23/2023, 08/23/2023, 12/03/2020, Additional history exists Influenza Vaccine Completed 01/01/2024, , 12/02/2018, Additional history exists Procedures Procedure Name Priority Date/Time Associated Diagnosis Comments EGFR Routine 01/16/2024 12:26 PM BOTTLE BLOWING MACHINE TENDER Myasthenia gravis (HCC) HEMOGLOBIN A1C Routine 01/16/2024 12:26 PM BOTTLE BLOWING MACHINE TENDER Myasthenia gravis (HCC) 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 73 m2 Comment: [...] last reviewed 2021. Testing performed by: [facility], [address] [place] [address]., [address] Blood 01/16/2024 12:2 6 PM BOTTLE BLOWING MACHINE TENDER 01/16/2024 5:43 PM BOTTLE BLOWING MACHINE TENDER Steven Desai MD LAB BLOOD ORDERABLES Thelma l Result Performing Organization Address City/[facility] Co de Phone Number LYUDMILA WHALEN ([place]) 1 [facility] [place] [address] * (ABNORMAL) Hemoglobin A1c (01/16/2024 12:26 PM BOTTLE BLOWING MACHINE TENDER) Hgb A1C 6.0(H) 4.0 - 5.6 % Comment:Testing performed by : [facility], [address] [place] [address]., [address] Estimated Average Glucose 126 mg/dL LYUDMILA MARLEE ([place]) Comment: The ADA recommends reporting an estimated Average Glucose (eAG) with all Hemoglobin A1c results using the equation derived from a study of 507 normal and diabetic adults. Minority populations were underrepresented and children were not included. (Diabetes Care 31:7709-6746, 2008). The eAG is not equivalent to a fasting glucose. Testing performed by: [facility], [address] [place] [address]., [address] Blood 01/16/2024 12:2 6 PM BOTTLE BLOWING MACHINE TENDER 01/16/2024 5:23 PM BOTTLE BLOWING MACHINE TENDER Steven Desai MD LAB BLOOD ORDERABLES Thelma l Result Performing Organization Address City/[facility]/ZIP Co de Phone Number LYUDMILA [facility] ([place]) 1 [facility] [place] [address] * COLONOSCOPY (03/22/2023 11:15 AM BOTTLE BLOWING MACHINE TENDER) Anatomical Region Laterality Modality Other Narrative Procedure Note Job Brewster MD - 03/22/2023 11:15 AM CST ENDOSCOPY LAB Patient Name: Genna Calhoun Procedure Date: 03/22/2023 11:15 AM Date of : 1945 Admit Type: Outpatient Age: 77 Gender: Female Attending MD: Ananth Brewster M.D. Room: [facility] ENDOSCOPY ROOM 03 Note Status: Finalized Procedure: [...] The scope was passed under direct vision.The [id number] was introduced through the anusand advanced to [...] 0 Note Initiated On: 03/22/2023 11:15 AM Job Brewster MD ENDOSCOPY PROCEDURES Final Result [...] on 2017. Chol/HDL ratio 3 FIORDALIZA WHALEN ([place]) Blood 10/07/2021 10:5 6 PM CDT 10/07/2021 11:03 PM CDT Narrative LYUDMILA WHALEN ([place]) - 10/08/2021 12:28 AM CDT This lipid panel was automatically ordered due to a significant change in Troponin. The dietary status of the patient at the collection time should be correlated with the lipid results. us Steven Fairchild MD LAB BLOOD ORDERABLES Final Result LYUDMILA WHALEN ([place]) 1 [facility] Department [place] [address] * DIGITAL MAMMOGRAPHY (06/24/2012 9:47 AM CDT) Anatomical Region Laterality Modality Breast Mammography 06/24/2012 9:47 AM CDT Narrative 06/25/2012 10:58 AM CDT Performed by: dr Ravi Mamm Bi Acc#: [id number] DATE OF EXAM: Jun 24 2012 CLINICAL [...] 10:58A Ordering DR: DR ERI SHINE Attending DR: ERI SHINE Procedure Note Provider, MD Charla - 06/25/2016 Performed by: Screening Mamm Bi Acc#: [id number] DATE OF EXAM: Jun 24 2012 CLINICAL [...] Recently Relevant to Health Maintenance Insurance MEDICARE [facility] [id number] MEDICARE MEDICARE [facility] Address: [address] [address] [place] [address] IDPA Advance Directives For more information, please contact: [phone] * Full Code (Latest Code Status on File) Date Activated Date Inactivated Comments 03/22/2023 10:11 AM 03/22/2023 5:08 PM * Full Code Date Activated Date Inactivated Comments 10/08/2021 7:44 AM 10/09/2021 3:08 PM Care Teams Guillotine Operator Relationship Specialty Start Date End Date Albert Beauchamp MD [address] [place] [address] PCP - General 06/28/16 Steven Desai MD [address] [place] [address] Referring Physician Neuromuscular Medicine 03/05/19
--- OUTSIDE RECORDS SUMMARY | 2024-04-18 18:28 | XMS_ITS | Encounter Summary ---
Author Organization [facility] Address [address] [place] [address] Phone Care Team Providers Care Printed Circuit Boards Beveler Name Role Phone Albert Beauchamp MD Primary Care Provider [phone] Jamie Ochoa DO Unavailable [phone] Rosa Arreguin PAC Unavailable Sandhya Gonzalez APRN, CLIENT SERVICES ANALYST Unavailable Justyn Barrera MD Unavailable [phone] Clari Rubio MD Unavailable Reason for Visit * Reason Comments Medication Refill Encounter Details Date Type Department Care Team (Late st Contact Info) Description 06/18/2022 Refill [facility] - Gastroenterology - [place] #2 [place] [id number] Rosa Arreguin, PAC [address] [place] [address] Medication Refill Social History Tobacco Use Types [...] Exposure Response Date Recorded In the last 10 days, have yo u been in contact with someone who was confirmed or suspected to have Coronavirus/COVID-19? No / Unsure 05/25/2022 9:46 AM CDT documented as of this encounter Miscellaneous Notes * Telephone Encounter - Kendy Servin RN - 06/20/2022 9:07 AM CDT Medication failed the protocol, provider to review and approve the medication order if appropriate. Requested Prescriptions Pending Prescriptions Disp Refills cholestyramine (QUESTRAN) 4 GM Pack [Pharmacy Med Name: CHOLESTYRAMINE 4GM PACKETS 60S] Sig: MIX AND DRINK 1 PACKET BY MOUTH TWICE DAILY WITH MEALS Bile Acid Sequestrants Protocol Failed - 06/18/2022 4:34 PM Failed - Lipid panel in past year No results found for: LDL, HDLCHOLESTE, CHOLESTEROL, TRIGLYCRIDES, VLDL, CHDL, HDLNON Passed - Visit with relevant provider in past year or upcoming 90 days Recent Visits Date Type Provider Dept 05/25/22 Office Visit Justyn Barrera MD [facility] [place] 01/13/22 Office Visit Rosa Arreguin PAC [facility] [place] 07/11/21 Office Visit Rosa Arreguin PAC [facility] [place] Showing recent visits within past 365 days and meeting all other requirements Future Appointments No visits were found meeting these conditions. Showing future appointments within next 90 days and meeting all other requirements documented in this encounter Plan of Treatment Upcoming Encounters Date Type Department Care Team (Late st Contact Info) Description 06/30/2024 10:00 AM CDT Office Visit [facility] - Endocrinology - [place] #2 [place] [address] Clari Rubio MD #[address] [phone] 07/25/2024 10:00 AM CDT [facility] [place] [address] Sandhya Gonzalez APRN, CLIENT SERVICES ANALYST [address] [place] [address] documented as of this encounter Visit Diagnoses Diagnosis Functional diarrhea documented in this encounter Care Teams Printed Circuit Boards Beveler Relationship Specialty Start Date End Date Albert Beauchamp MD [address] [place] [address] PCP - General Internal Medicine 06/07/15 Jamie Ochoa DO [address] [place] [address] Gastroenterology 07/20/15 Rosa Arreguin [facility] #2 [place] [address] Physician Ambulance Mechanic Physician Ambulance Mechanic 07/11/21 Sandhya Gonzalez APRN, CLIENT SERVICES ANALYST #2 [place] [address] Nurse Practitioner Advanced Practice Nurse 01/30/23 Justyn Barrera MD #2 [place] [address] Consulting Physician Gastroenterology 05/25/22 Clari Rubio MD #2 [facility] [address] [address] Consulting Physician Endocrinology 05/21/23 documented as of this encounter
--- OUTSIDE RECORDS SUMMARY | 2024-04-18 18:28 | XMS_ITS | Clinical Summary ---
Author Organization [facility] Address [address] [place] [address] Phone Care Team Providers Care Fish Peddler Name Role Phone Albert Beauchamp MD Primary Care Provider [phone] Jamie Ochoa DO Unavailable [phone] Rosa Arreguin August PAC Unavailable [phone] Sandhya Gonzalez APRN, DIRECTOR OF NEUROLOGY Unavailable Justyn Barrera MD Unavailable [phone] Clari Rubio MD Unavailable Allergies Active Allergy Reactions Criticality Noted Date Comments Codeine Sulfate Unknown OVERLY SEDATED Heparin Anaphylaxis High Penicillins Unknown DROOLING Medications dorzolamide (TRUSOPT) 2 % Solution 2 times daily. Both eyes Active pyridostigmine (MESTINON) 60 MG TabletIndication s:Myasthenia Gravis 90 MG IN A,M,, 60 MG AT NOON, 90 AT 3 PM Indications: Myasthenia Gravis Active predniSONE (DELTASONE) 20 MG Tablet every other day. Use as directed. Active timolol (TIMOPTIC) 0.5 % Solution Place 1 Drop in affected eye(s) 2 times daily. Both eyes Active brimonidine (ALPHAGAN) 0.2 % Solution INSTILL ONE DROP IN BOTH EYES BID 5 6 Active latanoprost (XALATAN) 0.005 % Solution nightly. Both eyes 5 6 Active mycophenolate (CELLCEPT) 500 MG Tablet 1,000 mg 2 times daily. 0 Active famotidine (PEPCID) 20 MG Tablet Take 20 mg by mouth 2 times daily. 2 Active Eliquis 5 MG Tablet Take 5 mg by mouth 2 times daily. 2 Active metoprolol tartrate (LOPRESSOR) 25 MG Tablet Take 25 mg by mouth 2 times daily. 2 Active pyridostigmine (MESTINON) 180 MG Tablet Controlled Release Take 180 mg by mouth nightly. Active Escitalopram Oxalate 5 MG Tablet Take 5 mg by mouth daily. Active amLODIPine (NORVASC) 5 MG Tablet Take 2.5 mg by mouth daily. in the evening Active losartan (COZAAR) 100 MG Tablet Take 100 mg by mouth daily. Active traMADol (ULTRAM) 50 MG Tablet Take 50 mg by mouth. Active amLODIPine (NORVASC) 2.5 MG Tablet 3 Active Vitamin D3 (Vitamin D-[address]) 1000 UNIT Tablet Take 1,000 Units by mouth. Active latanoprost (XALATAN) 0.005 % Solution Place 1 Drop in affected eye(s) nightly. Active GaviLyte-G 236 g Recon Soln 3 Active pyridostigmine (MESTINON) 60 MG Tablet Take by mouth. 3 Active Escitalopram Oxalate 5 MG Tablet Take 5 mg by mouth. Active metoprolol tartrate (LOPRESSOR) 50 MG Tablet Take 50 mg by mouth 2 times daily. 3 Active metoprolol tartrate (LOPRESSOR) 50 MG Tablet 3 Active VITAMIN D PO Take 125 mg by mouth daily. Active cholestyramine (QUESTRAN) 4 GM PackIndications: Functional diarrhea Take 1 Packet by mouth 2 times daily (with meals). 60 Packet 3 4 Active zoledronic acid (RECLAST) 5 MG/100ML SolutionIndicati ons:Steroid-stuart linwood osteoporosis 5 mg by Intravenous route See Admin Instructions. 100 mL 4 Active atorvastatin (LIPITOR) 10 MG Tablet Take 1 Tablet by mouth daily. Active amiodarone (CORDARONE) 200 MG Tablet Take 200 mg by mouth. 4 Active alendronate (FOSAMAX) 70 MG Tablet Take 70 mg by mouth every 7 days. Active furosemide (LASIX) 20 MG Tablet Take 20 mg by mouth daily. Active omeprazole (PriLOSEC) 40 MG CAPSULE DELAYED RELEASE TAKE 1 CAPSULE BY MOUTH DAILY. 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 Closed displaced transverse fracture of right pa tella 08/24/2022 Fracture of patella with routine healing, right, closed 08/24/2022 Pharyngoesophageal dysphagia 01/13/2022 History of esophageal stricture 01/13/2022 Chronic hepatitis, unspecified 07/11/2021 Hepatitis C virus infection cured after antiviral drug therapy 12/03/2019 Scarring of lung 09/13/2016 Essential (primary) hypertension 09/13/2016 GERD (gastroesophageal reflux disease) Functional diarrhea Encounters Date Type Department Care Team Description 02/08/2024 Transcribe Orders [facility] Central Scheduling [address] [place] [address] Albert Beauchamp MD Dorsalgia (Primary Dx) 02/04/2024 [facility] [address] [place] [address] Sandhya Gonzalez APRN, CNP Medication Refill 01/25/2024 10:00 AM HARNESS PLACER Office Visit [facility] Gastroenterology [facility] [address] [place] [address] Sandhya Gonzalez APRN, NAVID Gastroesophageal reflux disease, unspecified whether esophagitis present (Primary Dx); Functional diarrhea Discharge Disposition: Discharged to home or Selfcare 01/25/2024 Travel from Last 3 Months Immunizations Immunization Administration Dates Next Due Covid-19, Mrna, Lnp-s, Pf, 3 0 Mcg/0.3 Ml Dose (Pfizer) 05/29/2020,05/07/2020 Hepatitis A And Hepatitis B Vaccine 09/07/2016,0 04/08/2016,03/08/2016 Influenza Vaccine greater than 3 yrs 12/07/2014 Influenza Vaccine,unspecifie d Formulation 11/04/2015 Influenza, High-dose, Quadrivalent 12/01,12/07/2020,12/23/2019,2019 Influenza, Injectable, Quadrivalent 12/12/2017,1 ,11/27/2014 Influenza, Quadrivalent, Adjuvanted 12/21/2020 Influenza, Seasonal, Injecta ble, Undefined 12/07/2014 Influenza, high-dose, trivalent, PF 12/16/2019,0 12/02/2018 Pneumococcal Vaccine - 13 Valent 03/02/2015 Pneumococcal Vaccine Adult - 23 Valent 03/05/1999 Td Vaccine (preservative free) 08/04/2015 Family History Medical History Relation Name Comments Cancer Father stomach/esophag ua Cancer Maternal Aunt lung Heart Disease Maternal Aunt Stroke Maternal Aunt Cancer Maternal Grandfather lymph n ode/throat Diabetes Maternal Grandmother Hypertension Maternal Grandmother Breast Cancer Mother Cancer Mother Congestive Heart Failure Mother Heart Disease Mother Hypertension Mother Cancer Paternal Grandfather prostat e Diabetes Paternal Grandmother Hypertension Paternal Grandmother Lupus Sister Relation Name Status Comments Father Maternal Aunt Maternal Grandfather Maternal Grandmother Mother Paternal Grandfather Paternal Grandmother Sister Social History Tobacco Use Types Packs/Day Years [...] file Not on file Not on file Last Filed Vital Signs Vital Sign Reading Time Taken Comments Blood Pressure 118/62 01/25/2024 10:18 AM HARNESS PLACER Pulse 58 01/25/2024 10:18 AM HARNESS PLACER Temperature 36.3 C (97.3 F) 01/25/2024 10:18 AM HARNESS PLACER Respiratory Rate 16 01/25/2024 10:1 8 AM HARNESS PLACER Oxygen Saturation 97% 01/25/2024 10: 18 AM HARNESS PLACER Inhaled Oxygen Concentration - - Weight 54.3 kg (119 lb 12.8 oz) 024 10:18 AM HARNESS PLACER Height 157.5 cm (5' 2 ) 01/25/2024 10:1 8 AM HARNESS PLACER Body Mass Index 21.91 01/25/2024 10:18 AM HARNESS PLACER Plan of Treatment Upcoming Encounters Date Type Department Care Team (Late st Contact Info) Description 06/30/2024 10:00 AM CDT Office Visit [facility] Medical [facility] - Endocrinology - [place] [address] [place] [address] Clari Rubio MD [address] [place] [address] 07/25/2024 10:00 AM CDT Office Visit [facility] - Gastroenterology - [place] #2 [facility] [place] [address] Sandhya Gonzalez APRN, DIRECTOR OF NEUROLOGY [address] [place] [address] Health Maintenance Due Date Last Done Comments TdaP Immunization 1945 Zoster Immunization (1 of 2) 1965 Pneumococcal Immunization (50+ years) (3 of 3 - PCV20 or PCV21) 03/02/2020 03/02/2015, 03/05/1999 Respiratory Syncytial Virus (RSV) Immunization (Adult) (1 - 1-dose 75+ series) 2021 SARS-COV-2 Immunization ( season) 2023 02/05/2023, 10/13/2021, 02/01/2021, Additional history exists DEXA Bone Density 08/22/2025 08/23/2023, 12/03/2020 Pneumococcal Immunization Combined Discontinued 03/02/2015, 03/05/1999 DTaP/Tdap/Td Immunization Discontinued 08/04/2015 Hepatitis B Immunization Completed 017, 04/08/2016, 03/08/2016 Colonoscopy High Risk Discontinued 03/22/2023 , 01/13/2020, 01/13/2020, Additional history exists Colonoscopy Discontinued 03/22/2023, 01/03, 01/13/2020, Additional history exists Colorectal Cancer Screening Discontinued Mammogram Discontinued 08/23/2023, 03/2020, 04/17/2017, Additional history exists Influenza Immunization Completed , 12/25/2022, 12/01/2021, Additional history exists Cologuard Discontinued Immunochemical Fecal Occult Blood Discontinued Meningococcal Immunization (ACWY) Aged Out No longer eligible based on patient's age to complete this topic Rotavirus Immunization Aged Out No lo nger eligible based on patient's age to complete this topic Medical Devices Implanted Type Area Insurance Legal Assistant Device Identifier Shelf Expiration Date Model / Serial / Lot Suture Ss Ethi-Pack 7 18in Mfl 12 Strand Ties Silver Nabsb - [id number] Implanted:Qty: 1 on 08/24/2022 by Jacob Martinez MD at [facility] IMPLANT Right: Patella [employer] DS18 / DS18 / DS18 Washer 8mm Asnis Iii Orth Ss 7mm Jaziel Screw - [id number] Implanted:Qty: 2 on 08/24/2022 by Jacob Martinez MD at [facility] IMPLANT Right: Patella [place] [employer] [id number] / [id number] / [id number] Stryker4.0 Cannulated Ft Stainless Steel 50mm Screw Implanted:Qty: 1 on 08/24/2022 by Jacob Martinez MD at [facility] Right: Patella WILLIAM / TRAUMA [id number] / [id number] / [id number] William 4.0mm X 42mm Ft Stainless Steel Screw Implanted:Qty: 1 on 08/24/2022 by Jacob Martinez MD at [facility] Right: Patella WILLIAM / TRAUMA [id number] / [id number] / [id number] Explanted Type Area Insurance Legal Assistant Device Identifier Shelf Expiration Date Model / Serial / Lot Suture Ss Ethi-Pack 7 18in Mfl 12 Strand Ties Silver Nabsb - [id number] Explanted:Qty : 1 on 08/24/2022 at [facility] IMPLANT Right: Patella [employer] DS18 / DS18 / DS18 [place] 4.0mm X 44mm Ft Stainless Steel Screw Explanted:Qty : 1 on 08/24/2022 at [facility] Right: Patella WILLIAM / TRAUMA [id number] / [id number] / [id number] Procedures Procedure Name Priority Date/Time Associated Diagnosis Comments [facility] SCREENING BILATERAL DIGITAL W CAD W CHANDU Routine 08/23/2023 10:37 AM CDT Visit for screening mammogram [facility] BONE DENSITOMETRY AXIAL SKELETON Routine 08/23/2023 10:10 AM CDT Steroid-induced osteoporosis Medication management HM COLONOSCOPY Routine 08/17/2014 from Last 3 Months or Most Recently Relevant to Health Maintenance Results * [facility] SCREENING BILATERAL DIGITAL W CAD W CHANDU (08/23/2023 10:37 AM CDT) Anatomical Region Laterality Modality breast Bilateral Mammography 08/23/2023 11:4 2 AM CDT Narrative 08/27/2023 7:36 AM CDT - [facility] SCREENING BILATERAL DIGITAL W CAD W CHANDU BILATERAL DIGITAL SCREENING MAMMOGRAM 3D/2D WITH CAD WITH MEDIOLATERAL OBLIQUE CRANIOCAUDAL: 08/23/2023 The study was acquired using digital technology and interpreted from soft copy. Current study was also evaluated with ICAD version 7.2. 2D digital mammographic views, as well as 3D digital tomosynthesis were performed in the CC and MLO projections. CLINICAL: Routine screening. Patient has no complaints. She reports a 15 pound weight increase. No personal history of cancer. Mother with postmenopausal breast cancer (Paget's). COMPARISONS: Comparison is made to exams dated: 12/03/2020, 04/17/2017, and 11/23/2015 [facility]. BREAST TISSUE:There are scattered fibroglandular densities in both breasts. FINDINGS: There is a benign calcification in the right breast. No significant masses, calcifications, or other findings are seen in either breast. There has been no significant interval change. IMPRESSION: BI-RAD 2 BENIGN There is no mammographic evidence of malignancy. A 1 year screening mammogram is recommended. A letter will be sent to the patient with these results. The patient will be entered into a reminder system with a target due date of 1 year for her next screening exam. Electronically signed by: Zarina lovell/penrad:08/24/2023 15:40:03 Foxing Closer(s): RT Jarod(R)(M), [facility] letter sent: Normal Exam Reading location: [facility] BI-RADS: 2 Benign Procedure Note Zarina Larson MD - 08/27/2023 - [facility] SCREENING BILATERAL DIGITAL W CAD W CHANDU BILATERAL DIGITAL SCREENING MAMMOGRAM 3D/2D WITH CAD WITH MEDIOLATERAL OBLIQUE CRANIOCAUDAL: 08/23/2023 The study was acquired using digital technology and interpreted from soft copy. Current study was also evaluated with CorMatrixD version 7.2. 2D digital mammographic views, as well as 3D digital tomosynthesis were performed in the CC and MLO projections. CLINICAL: Routine screening. Patient has no complaints. She reports a 15 pound weight increase. No personal history of cancer. Mother with postmenopausal breast cancer (Paget's). COMPARISONS: Comparison is made to exams dated: 12/03/2020, 04/17/2017, and 11/23/2015 [facility]. BREAST TISSUE:There are scattered fibroglandular densities in both breasts. FINDINGS: There is a benign calcification in the right breast. No significant masses, calcifications, or other findings are seen in either breast. There has been no significant interval change. IMPRESSION: BI-RAD 2 BENIGN There is no mammographic evidence of malignancy. A 1 year screening mammogram is recommended. A letter will be sent to the patient with these results. The patient will be entered into a reminder system with a target due date of 1 year for her next screening exam. Electronically signed by: Zarina lovell/penrad:08/24/2023 15:40:03 Foxing Closer(s): RT Jarod(R)(M), [facility] letter sent: Normal Exam Reading location: [facility] BI-RADS: 2 Benign us Albert Beauchamp MD IMG MAMMO ORDERABLES Final Re sult * [facility] BONE DENSITOMETRY AXIAL SKELETON (08/23/2023 10:10 AM CDT) Anatomical Region Laterality Modality BODY N/A Computed Radiogr aphy 08/23/2023 1:33 PM CDT Impressions 08/23/2023 1:35 PM CDT IMPRESSION: Low bone mass REFERENCE: Bone mineral density: T-Score: Normal (T-score above or = -1.0) Low bone mass (T-score between -1.0 and -2.5) replaces the previously used term osteopenia Osteoporosis (T-score = or below -2.5) Z-Score: Within the expected range for age (Z-score above -2.0) Below the expected range for age (Z-score is -2.0 or below) Please see below follow up recommendations. Medical evaluation for secondary causes of low bone mineral density may be appropriate. FRAX is a World Health Organization validated fracture risk assessment tool that calculates a person's 10 year probability of a major osteoporosis related fracture and hip fracture. According to the National Osteoporosis Foundation guidelines, postmenopausal women and men age 50 or older with low bone mass and a 10 year probability of a major osteoporosis related fracture = or greater than 20% or a 10 year probability of a hip fracture = or greater than 3% should be considered for pharmacological treatment for the prevention of osteoporosis. For further information, including treatment recommendations, please refer to the 2019 ISCD Official Positions (http://www.iscd.org) and the NOF's Clinician's Guide to Prevention and Treatment of Osteoporosis (http://www.nof.org/professionals/clinical-guidelines) Narrative 08/23/2023 1:35 PM CDT EXAM DESCRIPTION: [facility] BONE DENSITOMETRY AXIAL SKELETON REASON FOR STUDY: 77 y/o year old F with given history of: Steroid induced osteoporosis. Postmenopausal status. Medication management. Patient has taken/is taking Fosamax, Prolia, vitamin-D, multivitamin, and calcium Insurance Legal Assistant/Model: Doutor Recomenda (S/N [id number]) CLINICAL INFORMATION: Current height: 61 inches Maximum height: 61 inches Weight: 125.5 pounds Risk factors: Prior fracture, glucocorticoid use chronic and currently. COMPARISON: 12/03/2020 FINDINGS: AP LUMBAR SPINE L1-L4: Total BMD is 1.468 g/cm2 T-score is 2.2 This is a 1.7% increase in comparison to prior exam which is not statistically significant. LEFT HIP: Total BMD is 0.836 g/cm2 T-score is -1.4 This is a 6.8% increase in comparison to prior exam which is statistically significant. Femoral neck BMD is 0.853 g/cm2 T-score is -1.3 FRAX: 10 year risk for a major osteoporotic fracture is 24.6 %, 10 year risk for a hip fracture is 5.4 % THIS IS AN ELECTRONICALLY VERIFIED FINAL REPORT 08/23/2023 1:33 PM - Electronically signed by Joyce Candelaria M.D. TW: TW Report ID: [id number] Reading Location: [place] [address] Procedure Note Joyce Candelaria MD - 08/23/2023 EXAM DESCRIPTION: [facility] BONE DENSITOMETRY AXIAL SKELETON REASON FOR STUDY: 77 y/o year old F with given history of: Steroid induced osteoporosis. Postmenopausal status. Medication management. Patient has taken/is taking Fosamax, Prolia, vitamin-D, multivitamin, and calcium Insurance Legal Assistant/Model: Doutor Recomenda (S/N [id number]) CLINICAL INFORMATION: Current height: 61 inches Maximum height: 61 inches Weight: 125.5 pounds Risk factors: Prior fracture, glucocorticoid use chronic and currently. COMPARISON: 12/03/2020 FINDINGS: AP LUMBAR SPINE L1-L4: Total BMD is 1.468 g/cm2 T-score is 2.2 This is a 1.7% increase in comparison to prior exam which is not statistically significant. LEFT HIP: Total BMD is 0.836 g/cm2 T-score is -1.4 This is a 6.8% increase in comparison to prior exam which is statistically significant. Femoral neck BMD is 0.853 g/cm2 T-score is -1.3 FRAX: 10 year risk for a major osteoporotic fracture is 24.6 %, 10 year risk for a hip fracture is 5.4 % THIS IS AN ELECTRONICALLY VERIFIED FINAL REPORT 08/23/2023 1:33 PM - Electronically signed by Joyce Candelaria M.D. TW: TW Report ID: [id number] Reading Location: [place] [address] IMPRESSION: Low bone mass REFERENCE: Bone mineral density: T-Score: Normal (T-score above or = -1.0) Low bone mass (T-score between -1.0 and -2.5) replaces the previously used term osteopenia Osteoporosis (T-score = or below -2.5) Z-Score: Within the expected range for age (Z-score above -2.0) Below the expected range for age (Z-score is -2.0 or below) Please see below follow up recommendations. Medical evaluation for secondary causes of low bone mineral density may be appropriate. FRAX is a World Health Organization validated fracture risk assessment tool that calculates a person's 10 year probability of a major osteoporosis related fracture and hip fracture. According to the National Osteoporosis Foundation guidelines, postmenopausal women and men age 50 or older with low bone mass and a 10 year probability of a major osteoporosis related fracture = or greater than 20% or a 10 year probability of a hip fracture = or greater than 3% should be considered for pharmacological treatment for the prevention of osteoporosis. For further information, including treatment recommendations, please refer to the 2019 ISCD Official Positions (http://www.iscd.org) and the NOF's Clinician's Guide to Prevention and Treatment of Osteoporosis (http://www.nof.org/professionals/clinical-guidelines) us Clari Rubio MD IMG DEXA ORDERABLES Final Result * [facility] COLONOSCOPY (08/17/2014) us Albert Beauchamp MD PROCEDURE/MINOR SURGICAL ORDE RABLES Final Result from Last 3 Months or Most Recently Relevant to Health Maintenance Insurance MEDICARE MEDICAID [place] Advance Directives * Full Code (Latest Code Status on File) Date Activated Date Inactivated Comments 09/06/2022 9:10 AM Care Teams Fish Peddler Relationship Specialty Start Date End Date Albert Beauchamp MD [address] [place] [address] PCP - General Internal Medicine 06/07/15 Jamie Ochoa DO [address] [place] [address] Gastroenterology 07/20/15 Rosa Arreguin Nettie, [facility] [address] [place] [address] Physician Batch Unloader Physician Batch Unloader 07/11/21 Sandhya Gonzalez APRN, DIRECTOR OF NEUROLOGY #[address] [place] [address] Nurse Practitioner Advanced Practice Nurse 01/30/23 Justyn Barrera MD #2 [place] [address] Consulting Physician Gastroenterology 05/25/22 Clari Rubio MD #[address] [address] Consulting Physician Endocrinology 05/21/23
[2024-04-18 18:32] VITALS: BP 128/73; PULSE 87; RESP 18; TEMP 38.1; O2SAT 99
--- NOTE | 2024-04-18 18:33 | ED.URI ---
HPI - URI/Sore Throat General Chief Complaint: Upper Respiratory Infection Stated Complaint: flu/covid symptoms Source: patient and RN notes reviewed Mode of arrival: ambulatory Limitations: no limitations History of Present Illness HPI Narrative: 78 y/o female presented for c/o Headache, body aches, sinus pressure/congestion, cough, fever/chills. Onset 2 days. Endorses some sob with exertion. Reports feeling occasional dizziness and right ear pressure. Has been taking theraflu and using ear wax drops. Denies chest pain, palpitations, wheezing, n/v/d. MD elicited complaint: cough Related Data Home Medications ?Medication ?Instructions ?Recorded ?Confirmed ?Last Taken ?Type alendronate 70 mg tablet 70 mg PO WEEKLY 06/07/22 06/07/22 Unknown History apixaban 5 mg tablet (Eliquis) 5 mg PO BID 06/07/22 06/07/22 Unknown History brimonidine 0.2 % eye drops 1 drp EACH EYE BID 06/07/22 06/07/22 Unknown History dorzolamide 2 % eye drops 2 drp EACH EYE BID 06/07/22 06/07/22 Unknown History escitalopram oxalate 5 mg tablet 5 mg PO DAILY 06/07/22 06/07/22 Unknown History famotidine 20 mg tablet 20 mg PO BID 06/07/22 06/07/22 Unknown History latanoprost 0.005 % eye drops 1 drp EACH EYE HS 06/07/22 06/07/22 Unknown History metoprolol tartrate 50 mg tablet 25 mg PO BID 06/07/22 06/07/22 Unknown History omeprazole 40 mg capsule,delayed 40 mg PO DAILY 06/07/22 06/07/22 Unknown History release prednisone 20 mg tablet mg 06/07/22 Unknown History pyridostigmine bromide 180 mg 180 mg PO HS 06/07/22 06/07/22 Unknown History tablet,extended release pyridostigmine bromide 60 mg tablet 90 mg PO TID 06/07/22 06/07/22 Unknown History Allergies Allergy/AdvReac Type Severity Reaction Status Date / Time Penicillins Allergy Mild THROAT Verified 04/18/24 18:46 FEELS ODD AND HAS INCREASE IN [place] codeine Allergy Unknown Unknown Unverified 04/18/24 18:46 heparin Allergy Unknown Unknown Unverified 04/18/24 18:46 Review of Systems Review of Systems: CONSTITUTIONAL: Endorses malaise, chills, sweats, fever EYES: Denies visual changes, redness, or discharge ENT: Reports rhinorrhea, congestion, sinus pain, otalgia, sore throat CARDIOVASCULAR: Denies chest pain, palpitations, edema RESPIRATORY: Reports cough, post nasal drainage. Denies dyspnea GASTROINTESTINAL: Denies abdominal pain, nausea, vomiting, diarrhea MUSCULOSKELETAL: Endorses myalgia Exam Narrative: GENERAL: mildly Ill-appearing, nontoxic no acute distress. EYES: PERRLA, conjunctivae clear ENT: Mucous membranes moist. Left TM pearly sarah with dull light reflex; Right TM unable to visualize due to excess cerumen. no tragal tenderness. no drooling, no hoarseness, no trismus, uvula midline. No tripod positioning, muffled voice, soft palate or pharyngeal wall bulging NECK: Supple. No lymphadenopathy CHEST:Lungs coarse to right [place]. Frequent moist rn medical inpatient services cough. No respiratory distress, speaks in full sentences. HEART: Regular rate and rhythm. No murmur heard. SKIN: Warm, dry NEURO: Alert and oriented x3. PSYCH: Normal mood and affect Course Course Emergency Course: Patient is aware of diagnosis, understands and agrees to treatment plan. Anticipatory guidance given. Patient agrees to follow-up as directed and is aware of reasons to seek care at the emergency department. Portions of this record may have been created with voice recognition software Level of Care: Express Care Visit Vital Signs Vital signs: Vital Signs Temperature 100.5 F H 04/18/24 18:32 Pulse Rate 87 04/18/24 18:32 Respiratory Rate 18 04/18/24 18:32 Blood Pressure 128/73 04/18/24 18:32 Pulse Oximetry 99 04/18/24 18:32 Oxygen Delivery Room Air 04/18/24 18:32 Temperature 100.5 F H 04/18/24 18:32 Pulse Rate 87 04/18/24 18:32 Respiratory Rate 18 04/18/24 18:32 Blood Pressure 128/73 04/18/24 18:32 Pulse Oximetry 99 04/18/24 18:32 Oxygen Delivery Room Air 04/18/24 18:32 reviewed Procedures Ear Wax Removal Right Ear: Ear Wax Removal Date: 04/18/24 Cerumenolytic Used: other (Equal parts warm water and hydrogen peroxide) Results: Re-examined: cerumen removed completely TM Examination: TM(s) intact, normal appearance Ear Canal Exam: atraumatic Patient Tolerated Procedure: well and no complications Technique: ear canal irrigated and ear canal curetted Additional Comments: Pt reported immediate improvement in hearing after the cerumen was removed easily. MDM - URI/Sore Throat MDM Narrative Medical decision making narrative: POS covid. Discussed physical exam findings and CXR. Reviewed RX. Pt will hold her every other day 20mg dose of prednisone for the course of steroids as prescribed. Cerumen removed from right ear. Advised supportive measures and signs/symptoms to go to the ER. Pt is appropriate for outpt treatment and f/u. Differential Diagnosis Differential diagnosis: Likely upper respiratory infection, sinusitis, viral infection, bronchitis and influenza Lab Data Labs: Lab Results 04/18/24 Range/Units 18:52 POC Influenza A Ag Negative (Negative) POC Influenza B Ag Negative (Negative) POC SARS CoV-2 Ag Positive (Negative) Imaging Data Radiologist's impression: Patient: Genna Calhoun : 1945 MR#: [id number] Age: 78 Acct:[id number] Loc: [facility] ADM Date: 04/18/24Attending Dr: Ordering Physician: Becki Hernandez APRN Date of Service: 04/18/24 Procedure(s): XR chest 2V Accession Number(s): [id number] cc: Becki Hernandez APRN~ CHEST RADIOGRAPH, PA AND LATERAL CLINICAL HISTORY: cough,COVID POSITIVE, RT LOWER CRACKLES . COMPARISON: None TECHNIQUE: PA and lateral views of the chest. FINDINGS The cardiomediastinal silhouette is unremarkable. The lungs are clear. Visualized osseous structures and soft tissues are unremarkable. IMPRESSION: No focal infiltrate or effusion. Discharge Plan Discharge Clinical Impression: COVID-19 Cerumen impaction Qualifiers: Laterality: right Qualified Code(s): H61.21 - Impacted cerumen, right ear Patient Disposition: Home, Self-Care Condition: Stable Instructions: COVID-19 (Coronavirus Disease 2019) (ED) Additional Instructions: Your rapid COVID test was positive today. The following updated recommendations have been made by the CDC and local Health Departments, regarding COVID-19: - When people get sick with a respiratory virus, they stay home and away from others. - Return to normal activities when, for at least 24 hours, symptoms are improving overall, and if a fever was present, it has been gone without use of a fever-reducing medication. - Once people resume normal activities, they are encouraged to take additional prevention strategies for the next 5 days to curb disease spread, such as taking more steps for swimming pool cleaner air, enhancing hygiene practices, wearing a well-fitting mask, keeping a distance from others, and/or getting tested for respiratory viruses. - Enhanced precautions are especially important to protect those most at risk for severe illness, including those over 65 and people with weakened immune systems. Rest, stay hydrated. Tylenol and ibuprofen every 8 hours as needed Flonase/nasal spray, Zyrtec, cough syrup cold/flu medications for symptoms as needed Take the steroid as directed (stop taking your dose of steroid for the course of treatment). albuterol inhaler as needed for shortness of breath/wheezing. Follow up with your primary care provider, call to schedule an appointment. Go to the ER for worsening symptoms or concerns. Patient Language: Argentine Prescriptions: New prednisone 20 mg tablet 40 mg PO DAILY 4 Days Qty: 8 0RF albuterol sulfate 90 mcg/actuation HFA aerosol inhaler 2 inh inhalation QID PRN (Reason: shortness of breath or wheezing) Qty: 8.5 0RF No Action alendronate 70 mg tablet 70 mg PO WEEKLY omeprazole 40 mg capsule,delayed release(DR/EC) 40 mg PO DAILY famotidine 20 mg tablet 20 mg PO BID metoprolol tartrate 50 mg tablet 25 mg PO BID dorzolamide 2 % drops 2 drp EACH EYE BID brimonidine 0.2 % drops 1 drp EACH EYE BID latanoprost 0.005 % drops 1 drp EACH EYE HS Eliquis 5 mg tablet 5 mg PO BID prednisone 20 mg tablet pyridostigmine bromide 180 mg tablet extended release 180 mg PO HS escitalopram oxalate 5 mg tablet 5 mg PO DAILY pyridostigmine bromide 60 mg tablet 90 mg PO TID cyclobenzaprine 10 mg tablet 10 mg PO TID PRN (Reason: muscle spasm) Qty: 14 0RF Follow-up/Referrals: PHYSICIAN NOT ON STAFF,NONSTAFF [Primary Care Provider] -
[2024-04-18 18:59] LABS: EDCOVIDSCREEN Positive (Negative); EDINFLUASCREEN Negative (Negative); EDINFLUBSCREEN Negative (Negative)
== END 2024-04-18 19:45 | disposition home or self-care (01) ==
PROVIDERS: Emergency Provider Nurse Practitioner Family
DX: U07.1 COVID-19 (principal); H61.21 Impacted cerumen, right ear
CPT/HCPCS: 69210; 71046; 87426; 87804; 99213; G0463